=== PATIENT | male | born 1940 | race Hispanic/Latino ===

== ENCOUNTER → 2017-10-25 | Outpatient (CLI) | payer MEDICARE ==
[~2017-10-25] MED LIST: ASPIR 8181 MG PO; FISH OIL 1,2001 EACH PO; GLIMEPIRIDE4 MG PO; IOPAMIDOL 370 MG/ML 200 ML INFUS..BTL INJ ONE; METOPROLOL SUCC50 MG PO; NORCO 7.5-3251 EACH PO; SODIUM CHLORIDE 0.9% 250ML 500 ML ONE; SODIUM CHLORIDE 0.9% 50ML 50 ML ONE; STOOL SOFTENER100 M1 PO; TRIBENZOR 40-51 EAC1 PO; TYLENOL EXTRA500 MG PO; VYTORIN 10-201 EACH PO
[2017-10-25 12:05] LABS: CREATININE, SERUM 1.51 mg/dL (0.72-1.25)
--- NOTE | 2017-10-26 08:13 | Diagnostic Imaging Report ---
Exam: Soft tissue neck CT with IV contrast History: Dysphasia Comparison studies: None Technique: Axial, coronal and sagittal images from the skull base to the thoracic inlet. Coronal and sagittal images reconstructed from the axial data. Intravenous contrast: 100 cc of Omnipaque 300. Findings: Thyroid gland: Enlarged heterogeneous, nodular left thyroid lobe which contains calcification measures 6.1 x 4.5 x 3.7 cm (SI x AP x TV). Enlarged left thyroid lobe result in mild mass effect on the trachea and mass effect on the esophagus. No gross evidence of tracheal invasion. Evaluation of the adjacent esophagus is limited by artifact secondary anterior fusion hardware in the cervical spine. Right thyroid lobe is homogeneous, normal in size. Upper aerodigestive tract: Cannot adequately evaluate the oral cavity due to artifact from dental amalgam. No mass or abnormal enhancement in the remaining upper aerodigestive tract. Mild mass effect on the trachea and esophagus due to left thyroid mass as described above. Lymph nodes: Enhancing, nonnecrotic, noncalcified 1.6 cm left suprahyoid jugular chain level IIb lymph node. There are subcentimeter left level IV lymph nodes (series 3, image 47) which are nonspecific. No contralateral right cervical lymphadenopathy. Vessels: Patent cervical carotid and vertebral arteries. There is anatomical variant retropharyngeal course of the right internal carotid artery which indents the posterior wall of the oral pharynx. There are scattered calcified plaque in the aortic arch, great vessels and cervical carotid arteries and at the origins of the vertebral arteries. Atherosclerosis at the carotid bulbs result in at least mild stenosis on the left. Scattered calcified plaque in the carotid siphons. The intradural V4 segment of the right vertebral artery is not identified and may possibly terminate early as a PICA branch though cannot further evaluate. At least mild stenosis in the intradural V4 segment of the left vertebral artery due to atherosclerosis. Parotid and submandibular glands: Normal in size and symmetric. No masses. Orbits: No abnormalities. Paranasal sinuses: Clear. Temporal bones: No gross abnormalities. Skull base and facial bones: Intact. Cervical spine: Surgical changes of C5-C7 anterior cervical discectomy and fusion. Osteophyte complexes at C5-C6 and at C6-C7 indent the thecal sac and result in mild canal stenosis. Multilevel uncovertebral foraminal stenosis with mild foraminal stenosis on the left at C2-C3 at C3-C4 and bilaterally at C4-C5 and moderate foraminal stenosis bilaterally at C5-C6 and at C6-C7. Incidental findings: Median sternotomy wires and mediastinal clips presumably related to previous CABG. IMPRESSION: 1. Enlarged left thyroid lobe with mass or nodules which exert mass effect on the trachea and mass effect on the esophagus as described. Recommend thyroid ultrasound and possible FNA to exclude malignancy. 2. Left cervical lymphadenopathy with enlarged left level IIb lymph node. Diagnostic considerations include angle metastasis (? thyroid primary, occult malignancy in the upper aerodigestive tract, or other distant angle metastasis) or possibly lymphoma. Recommend FNA to further evaluate. 3. Additional asymmetrically prominent but subcentimeter in size left level IV lymph nodes are nonspecific. No contralateral right cervical lymphadenopathy. 4. Moderate scattered atherosclerosis. Signed by: Dr. Curtis Shah M.D. on 10/26/2017 8:09 AM
== END ==
LOC: CT 10:25
PROVIDERS: ATTEND Internal Medicine
DX: R13.11 Dysphagia, oral phase (principal)
CPT/HCPCS: 36415; 70491; 82565; 84520; J7050; Q9967

== ENCOUNTER → 2017-11-21 | Outpatient (CLI) | payer MEDICARE ==
[~2017-11-21] MED LIST changes: -IOPAMIDOL 370 MG/ML 200 ML INFUS..BTL INJ ONE; -SODIUM CHLORIDE 0.9% 250ML 500 ML ONE; -SODIUM CHLORIDE 0.9% 50ML 50 ML ONE
--- NOTE | 2017-11-21 15:13 | Diagnostic Imaging Report ---
PROCEDURE:HIPS BILAT 3-4VWS (+/- PELVIS) INDICATION: Hip pain COMPARISON:None. FINDINGS: No acute, displaced fracture or dislocation. Femoral heads project appropriately over the acetabula. Symmetric mild degenerative changes of the hip joints with superolateral acetabular osteophytosis. Atherosclerotic vascular calcifications with a surgical clip in the right inguinal region. Soft tissues are otherwise unremarkable. CONCLUSION: No acute osseous abnormalities. 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 Dictated by: Curtis Rosales M.D. on 11/21/2017 at 14:05 Electronically approved by: Curtis Rosales M.D. on 11/21/2017 at 14:05
== END ==
LOC: RAD 11:55
PROVIDERS: ATTEND Nurse Practitioner Acute Care
DX: M25.552 Pain in left hip (principal); M25.551 Pain in right hip
CPT/HCPCS: 73522

== ENCOUNTER 2018-02-07 21:48 | Emergency (ER) | payer MEDICARE ==
[~2018-02-07] VITALS: Ht 167.6 cm; Wt 95.7 kg
[~2018-02-07 21:48] MED LIST changes: +ACETAMINOPHEN325 M1 PO; +ATORVASTATIN CA20 MG PO; +CLOPIDOGREL75 MG PO; +FUROSEMIDE40 MG PO; +LEVAQUIN500 MG PO; +METFORMIN HCL500 MG PO; +VITAMIN D1000 UNI1 PO; +ZETIA10 MG PO
[2018-02-07 21:58] VITALS: BP 143/83
== END 2018-02-07 22:20 | disposition home or self-care (01) ==
LOC: ER 21:48
DX: M79.631 Pain in right forearm (principal); I80.8 Phlebitis and thrombophlebitis of other sites; I10 Essential (primary) hypertension; E11.9 Type 2 diabetes mellitus without complications; I25.10 Atherosclerotic heart disease of native coronary artery without angina pectoris; E78.5 Hyperlipidemia, unspecified; M10.9 Gout, unspecified; Z85.828 Personal history of other malignant neoplasm of skin; Z85.850 Personal history of malignant neoplasm of thyroid; Z95.1 Presence of aortocoronary bypass graft
CPT/HCPCS: 99283

== ENCOUNTER → 2018-05-18 | Day surgery (SDC) | payer MEDICARE ==
[2018-05-17 12:25] LABS: BASOPHILS % 0.4 % (0.0-1.0); EOSINOPHILS # (AUTO) 0.3 (0.0-0.4); EOSINOPHILS % 5.6 % (0.0-6.0); HEMATOCRIT 32.9 % (38.2-49.6); HEMOGLOBIN 10.5 g/dL (14.0-18.0); LYMPHOCYTES # (AUTO) 1.3 (1.0-3.2); LYMPHOCYTES % 25.6 % (18.0-39.1); MEAN CORPUSCULAR HEMOGLOBIN 27.8 pg (28-32); MEAN CORPUSCULAR HGB CONC 31.9 g/dL (31-35); MONOCYTES # (AUTO) 0.5 (0.2-0.8); MONOCYTES % 9.1 % (4.4-11.3); NEUTROPHILS # (AUTO) 2.9 (2.1-6.9); NEUTROPHILS % 58.9 % (38.7-80.0); PLATELET COUNT 201 x10e3/uL (140-360); RED BLOOD COUNT 3.78 x10e6/uL (4.3-5.7); RED CELL DISTRIBUTION WIDTH 13.5 % (11.7-14.4)
[2018-05-17 12:52] LABS: ALANINE AMINOTRANSFERASE 15 IU/L (0-55); ALBUMIN 3.9 g/dL (3.5-5.0); ALBUMIN/GLOBULIN RATIO 1.1 (0.8-2.0); ALKALINE PHOSPHATASE 38 IU/L (40-150); BLOOD UREA NITROGEN 26 mg/dL (7-26); BUN/CREATININE RATIO 27 (6-25); CALCIUM 9.4 mg/dL (8.4-10.2); CARBON DIOXIDE 22 mmol/L (22-29); CHLORIDE 105 mmol/L (98-107); CHOL/HDL RATIO 2.6 (3.9-4.7); CHOLESTEROL 103 MD/DL (0-199); CREATININE, SERUM 0.97 mg/dL (0.72-1.25); EST GLOMERULAR FILTRATION RATE > 60 ML/MIN (60-); GLUCOSE 110 mg/dL (74-118); HDL CHOLESTEROL 40 MG/DL (40-60); LDL CHOLESTEROL 48 MG/DL (60-130); SODIUM 138 mmol/L (136-145); TRIGLYCERIDES 75 MG/DL (0-149)
[2018-05-18] VITALS (7 sets, daily range): BP systolic 130–156; BP diastolic 56–100
[~2018-05-18] VITALS: Ht 172.7 cm; Wt 88.9 kg
[~2018-05-18] MED LIST changes: +ALPRAZOLAM 0.5 MG TAB ONE; +COLCRYS0.6 MG PO; +DIPHENHYDRAMINE HCL 25 MG CAP ONE; +EPTIFIBATIDE 10 ML ONE; +FAMOTIDINE 20 MG/2 ML VIAL IV ONE; +FENTANYL CITRATE/PF 100MCG/2 ML INJ ONE; +HEPARIN SOD/SOD CHLORIDE 2,000 ML ONE; +IOPAMIDOL 370 MG/ML 200 ML INFUS..BTL INJ ONE; +IRON PO; +LIDOCAINE HCL 2% LOCAL 20 ML VIAL ONE; +METHYLPREDNISOLONE SOD SUCC 125 MG/2ML VIAL ONE; +MIDAZOLAM HCL 2 MG/2 ML VIAL ONE; +SODIUM CHLORIDE 0.9% 1000ML 1,000 ML ONE; +SUDAFED PO; +SYNTHROID200 MCG PO; +TICAGRELOR 90 MG TABLET ONE; +VERAPAMIL HCL 2.5 MG/ML 2 ML VIAL ONE
--- NOTE | 2018-05-18 11:45 | NUR ---
AMBULATED TO BAY 8. PREPROCEDURE TEACHING PROVIDED. PREPPED PER PROCEDURE PROTOCOL. AAOX3, VSS. NEGATIVE SHRUTI'S TEST NOTED BILATERALLY. DP/PT PULSES PALPABLE. BED IN LOWEST POSITION, SIDE RAILS UP. CALL LIGHT WITHIN REACH. FAMILY AT BEDSIDE.
--- NOTE | 2018-05-18 15:15 | NUR ---
RETURNED TO BAY #10 POST CORONARY INTERVENTION, PERCLOSE TO RFA. AAOX3, VSS. SITE TO R GROIN C/D/I NO SS OF BLEEDING OR HEMATOMA NOTED. DP/PT PULSES PALPABLE BILATERALLY. IV PATENT. POST PROCEDURE INSTRUCTIONS PROVIDED TO PT AND FAMILY. DENIED PAIN OR NEEDS AT THIS TIME. BED IN LOWEST POSITION, SIDE RAILS UP, CALL LIGHT WITHIN REACH.
--- NOTE | 2018-05-18 15:30 | NUR ---
AAOX3, VSS. SITE TO R GROIN C/D/I NO S/S OF BLEEDING OR HEMATOMA NOTED. DP/PT PULSES PALPABLE BILATERALLY. DENIED PAIN OR NEEDS AT THIS TIME. BED IN LOWEST POSITION, SIDE RAILS UP, CALL LIGHT WITHIN REACH. FAMILY AT BEDSIDE.
--- NOTE | 2018-05-18 15:45 | NUR ---
SLEEPING WITH RESPIRATIONS EVEN AND NONLABORED. EASILY AWAKENED. AAOX3, VSS. SITE TO R GROIN C/D/I NO S/S OF BLEEDING OR HEMATOMA NOTED. DP/PT PULSES PALPABLE BILATERALLY. DENIED PAIN OR NEEDS AT THIS TIME. BED IN LOWEST POSITION, SIDE RAILS UP, CALL LIGHT WITHIN REACH. FAMILY AT BEDSIDE.
--- NOTE | 2018-05-18 16:30 | NUR ---
SLEEPING WITH RESPIRATIONS EVEN AND NONLABORED. EASILY AWAKENED. AAOX3, VSS. SITE TO R GROIN C/D/I NO S/S OF BLEEDING OR HEMATOMA NOTED. DP/PT PULSES PALPABLE BILATERALLY. WRITTEN AND VERBAL DISCHARGE INSTRUCTIONS PROVIDED TO PT AND FAMILY, VERIFIED BY VERBAL REPEAT. DENIED PAIN OR NEEDS AT THIS TIME. BED IN LOWEST POSITION, SIDE RAILS UP, CALL LIGHT WITHIN REACH. FAMILY AT BEDSIDE.
--- NOTE | 2018-05-18 17:00 | NUR ---
HOB INCREASED TO HIGH GALLARDO'S POSITION. AAOX3, VSS. SITE TO R GROIN C/D/I NO S/S OF BLEEDING OR HEMATOMA NOTED. DP/PT PULSES PALPABLE BILATERALLY. URINATED 300ML CLEAR, YELLOW URINE OUTPUT TO URINAL. TELE/OBS BED REQUEST ENTERED. DENIED PAIN OR NEEDS AT THIS TIME. BED IN LOWEST POSITION, SIDE RAILS UP, CALL LIGHT WITHIN REACH. FAMILY AT BEDSIDE.
--- NOTE | 2018-05-18 19:00 | NUR ---
Patient ambulated with assistance. Right groin site with no bleeding or hematoma noted. IV removed with cannula intact. [facility] for discharge home with daughter driving vehicle.
--- NOTE | 2018-05-19 12:57 | Operative Report ---
DATE OF PROCEDURE: May 18, 2018 INDICATIONS 1. Coronary artery disease. 2. Unstable angina. PROCEDURES PERFORMED 1. Left heart catheterization, selective coronary angiography. 2. Atherectomy and stent placement from the left main to the circumflex coronary artery. 3. Deployment of right groin Perclose closure device. RECOMMENDATIONS: Dual antiplatelet therapy for life. Access obtained in the right femoral artery. A 6-Mohawk sheath was placed. Angiography demonstrated 80% distal left main stenosis extending into the circumflex artery with SURY-3 flow, heavily calcified. A short lead ViperWire was advanced across the lesion for support. Orbital atherectomy using a CSI was performed. Balloon angioplasty with a 2.5-mm balloon, following which a single 3.5 x 16 mm [employer] Synergy stent was deployed from the ostial left main extending into the circumflex artery, post tied with a 4-mm balloon with excellent end result, less than 10% residual stenosis, SURY-3 flow. No complications. Right groin repaired using Perclose. Patient was discharged home same day. Job#: [id number] JULIUS
== END | disposition home or self-care (01) ==
LOC: CATH LAB 11:29
PROVIDERS: ATTEND Internal Medicine Interventional Cardiology
DX: I25.700 Atherosclerosis of coronary artery bypass graft(s), unspecified, with unstable angina pectoris (principal); Z95.1 Presence of aortocoronary bypass graft; I87.2 Venous insufficiency (chronic) (peripheral); C73 Malignant neoplasm of thyroid gland; I10 Essential (primary) hypertension; D64.9 Anemia, unspecified; J45.909 Unspecified asthma, uncomplicated; E11.9 Type 2 diabetes mellitus without complications; Z91.041 Radiographic dye allergy status; Z01.812 Encounter for preprocedural laboratory examination; Z79.82 Long term (current) use of aspirin; Z79.84 Long term (current) use of oral hypoglycemic drugs; Z79.02 Long term (current) use of antithrombotics/antiplatelets; Z68.33 Body mass index [BMI] 33.0-33.9, adult; Z82.49 Family history of ischemic heart disease and other diseases of the circulatory system
CPT/HCPCS: 93454; C9602; 36415; 80053; 80061; 85025; 92933; C1769; C1874; J1327; J2001; J2250; J2930; J7030; Q9967

== ENCOUNTER 2018-10-01 20:39 | Inpatient (IN) | payer MEDICARE ==
[~2018-10-01] VITALS: Ht 172.7 cm; Wt 87.1 kg
[~2018-10-01 20:39] MED LIST changes: -ALPRAZOLAM 0.5 MG TAB ONE; -DIPHENHYDRAMINE HCL 25 MG CAP ONE; -EPTIFIBATIDE 10 ML ONE; -FAMOTIDINE 20 MG/2 ML VIAL IV ONE; -FENTANYL CITRATE/PF 100MCG/2 ML INJ ONE; -HEPARIN SOD/SOD CHLORIDE 2,000 ML ONE; -IOPAMIDOL 370 MG/ML 200 ML INFUS..BTL INJ ONE; -LIDOCAINE HCL 2% LOCAL 20 ML VIAL ONE; -METHYLPREDNISOLONE SOD SUCC 125 MG/2ML VIAL ONE; -MIDAZOLAM HCL 2 MG/2 ML VIAL ONE; -SODIUM CHLORIDE 0.9% 1000ML 1,000 ML ONE; -TICAGRELOR 90 MG TABLET ONE; -VERAPAMIL HCL 2.5 MG/ML 2 ML VIAL ONE
[2018-10-01] MEDS ORDERED: PANTOPRAZOLE 40 MG 10ML VIAL IV ONE (21:30)
[2018-10-01 22:03] LABS: BASOPHILS % 0.3 % (0.0-1.0); EOSINOPHILS # (AUTO) 0.2 (0.0-0.4); EOSINOPHILS % 1.7 % (0.0-6.0); HEMATOCRIT 25.8 % (38.2-49.6); HEMOGLOBIN 8.4 g/dL (14.0-18.0); LYMPHOCYTES # (AUTO) 1.3 (1.0-3.2); LYMPHOCYTES % 12.2 % (18.0-39.1); MEAN CORPUSCULAR HEMOGLOBIN 29.6 pg (28-32); MEAN CORPUSCULAR HGB CONC 32.6 g/dL (31-35); MEAN CORPUSCULAR VOLUME 90.8 fL (81-99); MONOCYTES # (AUTO) 0.6 (0.2-0.8); MONOCYTES % 5.7 % (4.4-11.3); NEUTROPHILS # (AUTO) 8.5 (2.1-6.9); NEUTROPHILS % 79.1 % (38.7-80.0); PLATELET COUNT 256 x10e3/uL (140-360); RED BLOOD COUNT 2.84 x10e6/uL (4.3-5.7); RED CELL DISTRIBUTION WIDTH 15.9 % (11.7-14.4)
[2018-10-01 22:33] LABS: CREATINE KINASE MB 1.6 ng/mL (0-5.0)
[2018-10-01] MEDS ORDERED: PANTOPRAZOL 40MG/SOD CHL 0.9% 50 ML IV ONE (23:14)
[2018-10-01] MEDS: PANTOPRAZOLE INJ 80 MG in SODIUM CHLORIDE 0.9% 100 ML IV SCH (23:15)
[2018-10-01] MEDS ORDERED: VYTORIN 10-401 EACH PO (23:24)
[2018-10-01] MEDS ORDERED: TAFINLAR PO (23:24)
[2018-10-01] MEDS ORDERED: MEN'S ONE DAIL1 EACH PO (23:24)
[2018-10-01] MEDS ORDERED: VITAMIN D35000 UNIT PO (23:24)
[2018-10-01] MEDS ORDERED: CITALOPRAM HBR20 MG PO (23:24)
--- NOTE | 2018-10-01 23:28 | NUR ---
urinal at bedside, pt states he does not feel like he needs to void at present
--- NOTE | 2018-10-02 02:25 | NUR ---
URINE COLLECTED AND SENT. PT UP TO RESTROOM, HAD APPROX 1/4 CUP DARK TARRY STOOL IN TOILET COLLECTION DEVICE. AWAKE ALERT SKIN W/D RESP NONLAB. NAD NOTED. DENIES ANY CHANGE IN SX AT THIS TIME. PLACED ON AIR MATTRESS FOR COMFORT.
[2018-10-02 02:45] LABS: BILIRUBIN,URINE NEGATIVE (NEGATIVE); CLARITY,URINE CLEAR (CLEAR); COLOR,URINE YELLOW (YELLOW); KETONES,URINE NEGATIVE (NEGATIVE); LEUKOCYTE ESTERASE ,URINE NEGATIVE (NEGATIVE); NITRITE,URINE NEGATIVE (NEGATIVE); PROTEIN,URINE DIPSTICK NEGATIVE (NEGATIVE); URINE UROBILINOGEN 0.2 mg/dL (0.2 - 1)
[2018-10-02 02:57] LABS: BACTERIA,URINE FEW /HPF; EPITHELIAL CELLS,URINE FEW /LPF; MUCUS,URINE FEW (RARE); RBC,URINE 0-5 /HPF (0-5)
[2018-10-02] MEDS ORDERED: PREDNISONE 10 MG TAB ONE (03:25)
[2018-10-02] MEDS ORDERED: PREDNISONE 20 MG TAB PO ONE ×2 (03:30→13:30)
[2018-10-02] MEDS ORDERED: PANTOPRAZOL 40MG/SOD CHL 0.9% 50 ML IV ONE (03:31)
--- NOTE | 2018-10-02 04:00 | NUR ---
PT RESTING WITH EYES CLOSED, EASILY AROUSED, DENIES ANY CHANGES, SKIN W/D RESP NONLAB. NAD NOTED. BLOOD DRAWN FOR CMP AND REPEAT H&H.
[2018-10-02 04:21] LABS: HEMATOCRIT 19.9 % (38.2-49.6); HEMOGLOBIN 6.4 g/dL (14.0-18.0)
[2018-10-02] MEDS ORDERED: SODIUM CHLORIDE 0.9% 250ML 250 ML IV ONE (04:30)
[2018-10-02 04:33] LABS: ALANINE AMINOTRANSFERASE 10 IU/L (0-55); ALBUMIN 2.8 g/dL (3.5-5.0); ALBUMIN/GLOBULIN RATIO 1.3 (0.8-2.0); ALKALINE PHOSPHATASE 37 IU/L (40-150); ANION GAP 11.7 mmol/L (8-16); BLOOD UREA NITROGEN 42 mg/dL (7-26); BUN/CREATININE RATIO 38 (6-25); CARBON DIOXIDE 18 mmol/L (22-29); CHLORIDE 112 mmol/L (98-107); EST GLOMERULAR FILTRATION RATE > 60 ML/MIN (60-); GLUCOSE 100 mg/dL (74-118); POTASSIUM 4.7 mmol/L (3.5-5.1); SODIUM 137 mmol/L (136-145)
--- NOTE | 2018-10-02 05:01 | NUR ---
1ST UNIT OF PRBC'S STARTED. PT AWAKE ALERT SKIN W/D RESP NONLAB. NAD NOTED.
--- NOTE | 2018-10-02 06:16 | Diagnostic Imaging Report ---
Examination: Single AP view of the chest. COMPARISON: Portable chest 02/02/2018 INDICATION: CHF, lower GI bleed IMPRESSION: 1. Lines and Tubes: None 2. Lungs are well-inflated. No consolidation or pleural effusion. 3. Stable enlargement of the cardiac silhouette. Central pulmonary vasculature is normal. CABG changes. Aortic ectasia, stable 4. No acute bony abnormalities. Signed by: Dr. Grant Christianson M.D. on 10/02/2018 6:13 AM
--- NOTE | 2018-10-02 06:54 | NUR ---
REPORT TO RAFAEL HERNANDEZ
[2018-10-02] MEDS ORDERED: SODIUM CHLORIDE 0.9% 250ML 250 ML ONE ×2 (08:03→21:09)
[2018-10-02] MEDS ORDERED: PANTOPRAZOLE 40 MG 10ML VIAL ONE (08:14)
[2018-10-02] MEDS: PANTOPRAZOLE INJ 80 MG in SODIUM CHLORIDE 0.9% 100 ML IV SCH (08:15)
[2018-10-02] MEDS ORDERED: PANTOPRAZOLE 40 MG 10ML VIAL IV SCH (09:00)
[2018-10-02 11:30] VITALS: BP 141/65
--- NOTE | 2018-10-02 11:30 | NUR ---
PATIENT RECEIVED FROM ER PER STRETCHER. ALERT AND ORIENTED X 3, SKIN WARM AND DRY TO TOUCH, RESPIRATION EVEN AND UNLABORED. DENIED PAIN AT THIS TIME. ABLE TO TRANSFER SELF FROM STRETCHER TO BED. BLOOD TRANSFUSION IN PROGRESS, NO ADVERSE REACTION NOTED. TELEMETRY BOX [address], YELLOW SOCKS APPLIED. PATIENT ORIENTED TO SURROUNDINGS, BED IN LOWER POSITION, CALL LIGHT AT REACH. INSTRUCTED TO CALL FOR ASSISTANCE NEEDED. FAMILY AT BED SIDE. WILL CLOSELY MONITOR.
--- NOTE | 2018-10-02 11:35 | NUR ---
Patient transported to room 294 on tele. Blood transfusing at 100 ml's per hour. Med surg nurse aware.
[2018-10-02 12:02] VITALS: BP 142/65
--- NOTE | 2018-10-02 12:15 | NUR ---
BLOOD TRANSFUSION COMPLETED, NO ADVERSE REACTION OBSERVED. IV PROTONIX IN PROGRESS. CALL LIGHT AT REACH.
[2018-10-02] MEDS ORDERED: DIPHENHYDRAMINE HCL 25 MG CAP PO ONE (14:30)
[2018-10-02] MEDS ORDERED: FAMOTIDINE 20 MG TAB PO ONE (14:30)
[2018-10-02 15:41] LABS: HEMOGLOBIN 8.2 g/dL (14.0-18.0)
[2018-10-02 16:00] VITALS: BP 159/72
--- NOTE | 2018-10-02 16:00 | NUR ---
PATIENT OFF UNIT TO RADIOLOGY.
--- NOTE | 2018-10-02 16:00 | NUR ---
Visit made by the Spiritual Care Department Pastoral Visitor, Layla Polanco. PV provided pastoral presence, prayer, hospitality, and supportive listening. Pastoral Visitor informed pt/family of the scope of [facility] and availability. [employer] Spiritual Care Department O: [phone] Pager: [phone] ([phone] calling from)
[2018-10-02 16:21] LABS: FERRITIN 182.88 ng/mL (21.81-274.66)
--- NOTE | 2018-10-02 16:38 | NUR ---
PATIENT BACK TO UNIT FROM RADIOLOGY.
--- NOTE | 2018-10-02 17:10 | Diagnostic Imaging Report ---
EXAMINATION: CT of the abdomen and pelvis with contrast. TECHNIQUE: Spiral CT images of the abdomen and pelvis were performed from the lung bases to the lesser trochanters after the intravenous administration of 100 cc Isovue 370. Coronal and sagittal reformatted images were obtained. COMPARISON: None. CLINICAL HISTORY:Rectal bleeding DISCUSSION: ABDOMEN/PELVIS: LOWER THORAX:Subsegmental atelectasis in the left lung base HEPATOBILIARY: No focal hepatic lesions. No intra-or extrahepatic biliary ductal dilation. The gallbladder is normal. SPLEEN: No splenomegaly. PANCREAS: No focal masses or ductal dilatation. ADRENALS: No adrenal nodules. KIDNEYS/URETERS: No hydronephrosis, stones, or solid mass lesions. PELVIC ORGANS/BLADDER: Urinary bladder is incompletely distended but otherwise unremarkable. Coarse prostatic calcifications. PERITONEUM/RETROPERITONEUM: No free air or fluid. LYMPH NODES: No pelvic sidewall, retroperitoneal, or mesenteric lymphadenopathy. VESSELS: Atherosclerotic calcification of the abdominal aorta and major branch vessels without aneurysmal dilatation. The iliac arterial systems are markedly tortuous. GI TRACT: Multiple sigmoid diverticula with a short segment focus of wall thickening and adjacent mesocolic inflammatory change involving the mid sigmoid (series 2 image 64). Diverticula at lesser concentration are noted proximally within the large bowel. The appendix is normal. The stomach is collapsed with prominent rugal folds. No small bowel dilatation to suggest obstruction. BONES AND SOFT TISSUE: No osseous destructive lesion or focal soft tissue abnormalities. Bilateral L5 pars interarticularis defects with grade 1 anterolisthesis of L5 over S1. Multilevel degenerative disc changes and facet arthropathy elsewhere within the lumbar spine. IMPRESSION: Short segment sigmoid diverticulitis without tiffany perforation or drainable fluid collection. Atherosclerotic vascular disease. Signed by: Dr. Curtis Rosales M.D. on 10/02/2018 5:06 PM
[2018-10-02] MEDS ORDERED: IOPAMIDOL 370 MG/ML 200 ML INFUS..BTL INJ ONE (18:02)
[2018-10-02] MEDS ORDERED: SODIUM CHLORIDE 0.9% 50ML 50 ML ONE (18:02)
[2018-10-02] MEDS ORDERED: HYDRALAZINE HCL 20 MG/ML VIAL IV PRN (20:00)
[2018-10-02] MEDS ORDERED: PEG (High)/E-LYTE SOLN 4,000 ML BTL PO NR (20:00)
[2018-10-02 20:20] LABS: HEMATOCRIT 25.7 % (38.2-49.6); HEMOGLOBIN 8.6 g/dL (14.0-18.0)
[2018-10-02 20:38] VITALS: BP 153/71
[2018-10-02] MEDS: LEVOFLOXACIN 500MG/D5W 100ML 100 ML IV SCH (21:22)
[2018-10-02] MEDS: PANTOPRAZOL 40MG/SOD CHL 0.9% 50 ML IV SCH (22:30)
[2018-10-02] MEDS: METRONIDAZOLE 500MG/NS 100ML 100 ML IV SCH (22:30)
[2018-10-02 23:55] VITALS: BP 146/67
[2018-10-03 01:43] LABS: HEMOGLOBIN 7.9 g/dL (14.0-18.0)
--- NOTE | 2018-10-03 02:51 | History and Physical ---
CHIEF COMPLAINT: The patient is admitted for lower GI bleed. HISTORY OF PRESENTING ILLNESS: Mr. Gino Yu with a history of colitis with a history of multiple colon polyps done 3 years ago, was in usual state of health until the patient on Monday morning started to have some rectal bleeding, kept away from the family. The patient was noted to be very tired and fatigued and daughter on examination or interrogation found that the patient had bleeding and was brought to the emergency room and was found to have diverticulitis, admitted for the same. PAST MEDICAL HISTORY: 1. History of thyroid cancer with recent thyroidectomy. The patient has papillary thyroid cancer, follicular variant. 2. History of CAD. 3. History of hypertension. 4. History of diabetes mellitus. 5. History of hyperlipidemia. 6. History of depression. MEDICATIONS: He takes at home are Tribenzor 40/5/25 mg, metformin 1000 mg twice a day, metoprolol 50 mg daily, Vytorin 10/40 mg tablets a day, Plavix 75 mg, citalopram 20 mg, furosemide 40 mg, and the patient also is on Tafinlar 50 mg for the follicular variant cancer. The patient is also with current medications including aspirin 81 mg, iron tablet 65 mg, Veronica-Colace, docusate, vitamin D3 of 5000 units. PAST SURGICAL HISTORY: Includes history of multiple colonoscopies done by Dr. Gaitan. The patient also had a cystourethroscopy. The patient had quadruple bypass at [facility] in 2010; heart catheterization multiple times, recently by Dr. Smith; total knee replacement by Dr. Guillen; and C4-C5 disk fusion, ACDF; and again stress test by Dr. Smith. The patient had thyroidectomy on 02/14/2018 and laryngoplasty in 2018, [place] gain stent was put by Dr. Smith in 2018. SOCIAL HISTORY: No EtOH. No IV drug abuse. FAMILY HISTORY: Positive for diabetes and heart disease. REVIEW OF SYSTEMS: Negative for chest pain. Positive for some shortness of breath. Positive for rectal bleeding. No abdominal pain. No chest pain. No diplopia. No blurry vision. Positive for fatigue. PHYSICAL EXAMINATION: VITAL SIGNS: Temperature is 98.4, pulse is 71, blood pressure is 159/72, pulse oximetry of 99%. HEENT: Normocephalic, atraumatic. Pupils are reactive to light and accommodation. The patient does have pallor. CVS: S1 and S2. Regular rate and rhythm. ABDOMEN: Tenderness in the left lower quadrant. No rebound or guarding. EXTREMITIES: No clubbing, no cyanosis, no edema. LABORATORY VALUES: Initial hemoglobin was 8.4, hematocrit of 25.8, the patient dropped to 6.4 and 19.9, and back to 8.2 and 24.0. Chemistry shows BUN of 42, creatinine of 1.10. The patient's TIBC was 214, iron was 78. Troponins was negative. Lipase of 101. CT scan shows short segment sigmoid diverticulitis without tiffany perforation or drainable fluid collection, atherosclerotic vascular disease. ASSESSMENT: Diverticulitis. PLAN: Plan is to continue on antibiotics. The patient is currently on pantoprazole. We will put the patient on Flagyl and Levaquin, although pantoprazole has been started. The patient will be kept n.p.o. at this time. We will restart IV medications for his blood pressure. The patient is on IV fluids at this time. We will hold off on the Plavix and also hold off on the aspirin at this time in lieu of rectal bleeding. The patient's stenting was back in April. The patient has had about 5 to 6 months of Plavix. We will hold off. Further recommendation per clinical course. A consult with Dr. Cory Esquivel will be done too. H and H will be followed up serially. At this time, the rectal bleeding has stopped. MD JORDAN EstrellaJ/MODL /[id number]
[2018-10-03 04:42] VITALS: BP 120/57
[2018-10-03] MEDS: PANTOPRAZOL 40MG/SOD CHL 0.9% 50 ML IV SCH ×5 (05:21→22:36)
[2018-10-03] MEDS: METRONIDAZOLE 500MG/NS 100ML 100 ML IV SCH ×3 (05:39→22:36)
[2018-10-03 06:58] LABS: BASOPHILS % 0.1 % (0.0-1.0); EOSINOPHILS % 0.4 % (0.0-6.0); HEMATOCRIT 22.4 % (38.2-49.6); HEMOGLOBIN 7.5 g/dL (14.0-18.0); LYMPHOCYTES % 13.9 % (18.0-39.1); MEAN CORPUSCULAR HEMOGLOBIN 29.8 pg (28-32); MEAN CORPUSCULAR HGB CONC 33.5 g/dL (31-35); MEAN CORPUSCULAR VOLUME 88.9 fL (81-99); MONOCYTES # (AUTO) 0.5 (0.2-0.8); MONOCYTES % 7.6 % (4.4-11.3); NEUTROPHILS # (AUTO) 5.5 (2.1-6.9); PLATELET COUNT 189 x10e3/uL (140-360); RED BLOOD COUNT 2.52 x10e6/uL (4.3-5.7)
[2018-10-03] MEDS ORDERED: ACETAMINOPHEN 325 MG TAB PO PRN (07:00)
[2018-10-03] MEDS ORDERED: FUROSEMIDE 40 MG TAB PO PRN (07:00)
[2018-10-03 07:23] LABS: ALANINE AMINOTRANSFERASE 7 IU/L (0-55); ALBUMIN 2.9 g/dL (3.5-5.0); ALBUMIN/GLOBULIN RATIO 1.4 (0.8-2.0); ALKALINE PHOSPHATASE 35 IU/L (40-150); BLOOD UREA NITROGEN 24 mg/dL (7-26); BUN/CREATININE RATIO 28 (6-25); CALCIUM 7.8 mg/dL (8.4-10.2); CARBON DIOXIDE 20 mmol/L (22-29); CHLORIDE 115 mmol/L (98-107); CREATININE, SERUM 0.87 mg/dL (0.72-1.25); EST GLOMERULAR FILTRATION RATE > 60 ML/MIN (60-); GLUCOSE 105 mg/dL (74-118); SODIUM 142 mmol/L (136-145)
[2018-10-03 08:00] VITALS: BP 123/57
[2018-10-03] MEDS: TAFINLAR PO SCH ×3 (08:00→16:58)
--- NOTE | 2018-10-03 08:00 | NUR ---
Pt was received in bed. AOX4 and able to verbalize needs. Pt denies any pain at this time. Pt had bowel movement this morning and no blood noted to stool. Breaths are even and unlabored.
[2018-10-03 08:04] VITALS: BP 123/57
[2018-10-03] MEDS: ALLOPURINOL 300 MG TAB PO SCH (08:53)
[2018-10-03] MEDS: METOPROLOL SUCCINATE 50 MG TAB XL PO SCH (08:53)
[2018-10-03] MEDS: CITALOPRAM HYDROBROMIDE 20 MG TAB PO SCH (08:55)
[2018-10-03] MEDS: FERROUS SULFATE 325 MG TAB PO SCH (09:01)
[2018-10-03] MEDS ORDERED: SODIUM CHLORIDE 0.9% 250ML 250 ML ONE ×2 (09:53→13:58)
[2018-10-03] MEDS: TRIBENZOR PO SCH (10:00)
--- NOTE | 2018-10-03 10:37 | Progress Note ---
DATE: SUBJECTIVE: The patient is here for acute GI bleed. The patient has been given FFPs and 1 unit of PRBC. Currently, the hemoglobin and hematocrit are 7.9 and 24.0. The patient does continue to bleed. Post transfusion, H and H q.6 has been ordered. Currently, the patient is asymptomatic, little tired. OBJECTIVE: VITAL SIGNS: Temperature is 97.9, pulse of 83, respirations of 16, and blood pressure is 120/57. HEENT: Normocephalic, atraumatic. Pallor is present. CVS: S1, S2 normal. Regular rate and rhythm. ABDOMEN: Nontender. Tenderness is decreased in left lower quadrant. EXTREMITIES: No clubbing, no cyanosis. Trace edema. LABORATORY DATA: Hemoglobin 7.9, hematocrit of 24.0. Chemistries, glucoses have been normal. Iron is 78, TIBC of 214. ASSESSMENT: 1. Diverticular bleed. 2. Diverticulitis. 3. Hypertension. 4. Coronary artery disease. 5. Gout. 6. Hyperlipidemia. 7. History of thyroid cancer. PLAN: Plan is to continue jumbo FFP. Start the patient on clear liquid diet and also restart his home medication. Further recommendation and clinical course, we will continue to monitor the patient with Dr. Esquivel. Colonoscopy is not recommended at this time secondary to diverticulitis. MD JORDAN EstrellaJ/MODL /[id number]
--- NOTE | 2018-10-03 10:40 | NUR ---
Spoke to Dr. Taylor Esquivel to report hgb/hct results and received orders to transfuse one PRBC.
[2018-10-03] MEDS ORDERED: SODIUM CHLORIDE 0.9% 250ML 250 ML IV NR (10:45)
[2018-10-03 12:16] VITALS: BP 128/60
[2018-10-03 13:14] LABS: HEMATOCRIT 25.6 % (38.2-49.6); HEMOGLOBIN 7.6 g/dL (14.0-18.0)
[2018-10-03 16:00] VITALS: BP 147/68
--- NOTE | 2018-10-03 17:48 | NUR ---
Pt had transfusion of platelets and 1 unit PRBC and tolerated both well. no adverse reactions noted from transfusions. Pt denies any pain at this time. Continues on protonix drip.
[2018-10-03 19:29] LABS: HEMATOCRIT 23.1 % (38.2-49.6); HEMOGLOBIN 7.7 g/dL (14.0-18.0)
[2018-10-03 20:00] VITALS: BP 131/67
[2018-10-03] MEDS: EZETIMIBE 10 MG TAB PO SCH (21:00)
[2018-10-03] MEDS: LEVOFLOXACIN 500MG/D5W 100ML 100 ML IV SCH (21:23)
[2018-10-03] MEDS: SIMVASTATIN 40 MG TAB PO SCH (21:24)
[2018-10-04] VITALS (9 sets, daily range): BP systolic 109–135; BP diastolic 54–67
[2018-10-04] MEDS: PANTOPRAZOL 40MG/SOD CHL 0.9% 50 ML IV SCH ×4 (03:21→17:16)
[2018-10-04] MEDS: METRONIDAZOLE 500MG/NS 100ML 100 ML IV SCH ×3 (05:36→22:08)
[2018-10-04 06:37] LABS: BASOPHILS % 0.2 % (0.0-1.0); EOSINOPHILS # (AUTO) 0.1 (0.0-0.4); EOSINOPHILS % 2.7 % (0.0-6.0); HEMATOCRIT 24.1 % (38.2-49.6); HEMOGLOBIN 8.1 g/dL (14.0-18.0); LYMPHOCYTES # (AUTO) 0.8 (1.0-3.2); LYMPHOCYTES % 16.3 % (18.0-39.1); MEAN CORPUSCULAR HEMOGLOBIN 29.5 pg (28-32); MEAN CORPUSCULAR HGB CONC 33.6 g/dL (31-35); MEAN CORPUSCULAR VOLUME 87.6 fL (81-99); MONOCYTES # (AUTO) 0.3 (0.2-0.8); MONOCYTES % 6.1 % (4.4-11.3); NEUTROPHILS # (AUTO) 3.7 (2.1-6.9); NEUTROPHILS % 72.5 % (38.7-80.0); PLATELET COUNT 181 x10e3/uL (140-360); RED BLOOD COUNT 2.75 x10e6/uL (4.3-5.7); RED CELL DISTRIBUTION WIDTH 17.2 % (11.7-14.4)
[2018-10-04 07:00] LABS: BLOOD UREA NITROGEN 15 mg/dL (7-26); BUN/CREATININE RATIO 17 (6-25); CALCIUM 8.8 mg/dL (8.4-10.2); CARBON DIOXIDE 23 mmol/L (22-29); CHLORIDE 113 mmol/L (98-107); CREATININE, SERUM 0.88 mg/dL (0.72-1.25); EST GLOMERULAR FILTRATION RATE > 60 ML/MIN (60-); GLUCOSE 110 mg/dL (74-118); SODIUM 143 mmol/L (136-145)
[2018-10-04] MEDS ORDERED: IRON SUCROSE 100 MG in SODIUM CHLORIDE 0.9% 100 ML 100 ML IV SCH (07:30)
--- NOTE | 2018-10-04 07:30 | NUR ---
Pt in bed with eyes open. Pt is aox4, Denies any pain at this time. Continues on protonix drip with no adverse reactions noted.
--- NOTE | 2018-10-04 08:13 | Progress Note ---
DATE: SUBJECTIVE: The patient is here for diverticulitis and diverticular bleed. Yesterday, the patient did not have any rectal bleeding. OBJECTIVE: VITAL SIGNS: Temperature is 97.3, T-max is 99.4 on 10/04/2018 at 00:50. The patient's blood pressure is 134/61, pulse oximetry of 95% on room air. HEENT: Normocephalic, atraumatic. Pupils are reactive to light and accommodation. CVS: S1, S2. Regular rate and rhythm. ABDOMEN: Tenderness present the left lower quadrant. No guarding. EXTREMITIES: No clubbing, no cyanosis, no edema. LABORATORY DATA: Today's hemoglobin is 8.1, hematocrit of 24.1. Chemistries are pending. ASSESSMENT: Acute diverticular bleed, diverticulitis, hypertension, coronary artery disease, history of thyroid cancer, history of hyperlipidemia, history of gout. PLAN: Plan is to continue monitor the patient's H and H. Do not recommend colonoscopy at this time. The patient is progressing very well. Has iron deficiency component. We will add Venofer to the regimen. Start the patient on regular diet. Possible discharge tomorrow. Further recommendation per clinical course. Continue on his diabetic and CV medications. MD HANNAH Estrella/RAPHAEL /[id number]
[2018-10-04] MEDS: TAFINLAR PO SCH ×2 (08:53→17:13)
[2018-10-04] MEDS: TRIBENZOR PO SCH (08:53)
[2018-10-04] MEDS: CITALOPRAM HYDROBROMIDE 20 MG TAB PO SCH (08:53)
[2018-10-04] MEDS: FERROUS SULFATE 325 MG TAB PO SCH (08:53)
[2018-10-04] MEDS: ALLOPURINOL 300 MG TAB PO SCH (08:54)
[2018-10-04] MEDS: METOPROLOL SUCCINATE 50 MG TAB XL PO SCH (08:54)
[2018-10-04 09:31] LABS: EOSINOPHILS % (MANUAL) 3 % (0-7); LYMPHOCYTES % (MANUAL) 20 % (19-48); MONOCYTES % (MANUAL) 3 % (3.4-9.0); MYELOCYTES % (MANUAL) 1 % (0-0); NEUTROPHILS % (MANUAL) 73 % (40-74)
[2018-10-04 09:32] LABS: ANISOCYTOSIS SLIGHT; HYPOCHROMASIA MODERATE; PLATELET ESTIMATE ADEQUATE; PLATELET MORPHOLOGY COMMENT NORMAL; RBC MORPHOLOGY COMMENT NORMAL
[2018-10-04 12:03] LABS: HEMATOCRIT 26.9 % (38.2-49.6)
[2018-10-04 18:48] LABS: HEMATOCRIT 25.5 % (38.2-49.6); HEMOGLOBIN 8.1 g/dL (14.0-18.0)
[2018-10-04] MEDS: LEVOFLOXACIN 500MG/D5W 100ML 100 ML IV SCH (21:00)
[2018-10-04] MEDS: EZETIMIBE 10 MG TAB PO SCH (21:00)
[2018-10-04] MEDS: SIMVASTATIN 40 MG TAB PO SCH (21:00)
[2018-10-05] VITALS (8 sets, daily range): BP systolic 111–153; BP diastolic 56–71
[2018-10-05] MEDS: PANTOPRAZOL 40MG/SOD CHL 0.9% 50 ML IV SCH ×4 (00:09→15:05)
[2018-10-05] MEDS: METRONIDAZOLE 500MG/NS 100ML 100 ML IV SCH ×2 (05:46→14:53)
--- NOTE | 2018-10-05 07:35 | NUR ---
PATIENT IN BED RESTING WITH NO S/S OF DISTRESS. DENIED PAIN AT THIS TIME. BED IN LOWER POSITION, CALL LIGHT AT REACH.
[2018-10-05] MEDS: CITALOPRAM HYDROBROMIDE 20 MG TAB PO SCH (09:00)
[2018-10-05] MEDS: TAFINLAR PO SCH ×2 (09:00→17:00)
[2018-10-05] MEDS: TRIBENZOR PO SCH (09:00)
[2018-10-05] MEDS: FERROUS SULFATE 325 MG TAB PO SCH (09:19)
[2018-10-05] MEDS: METOPROLOL SUCCINATE 50 MG TAB XL PO SCH (09:20)
[2018-10-05] MEDS: ALLOPURINOL 300 MG TAB PO SCH (09:22)
--- NOTE | 2018-10-05 11:29 | NUR ---
PATIENT ASSISTED TO THE RESTROOM AND BACK TO BED, NO COMPLAIN VOICED. BED IN LOWER POSITION, CALL LIGHT AT REACH.
[2018-10-05] MEDS: DOCUSATE SODIUM 100 MG CAP PO SCH ×2 (12:14→17:21)
--- NOTE | 2018-10-05 15:47 | NUR ---
PATIENT AMBULATING IN HALLWAY, NO DISTRESS NOTED. WILL CLOSELY MONITOR.
[2018-10-05 18:32] LABS: BASOPHILS % 0.2 % (0.0-1.0); EOSINOPHILS # (AUTO) 0.3 (0.0-0.4); EOSINOPHILS % 3.9 % (0.0-6.0); HEMATOCRIT 25.3 % (38.2-49.6); HEMOGLOBIN 8.2 g/dL (14.0-18.0); LYMPHOCYTES # (AUTO) 0.7 (1.0-3.2); LYMPHOCYTES % 11.5 % (18.0-39.1); MEAN CORPUSCULAR HEMOGLOBIN 29.3 pg (28-32); MEAN CORPUSCULAR HGB CONC 32.4 g/dL (31-35); MEAN CORPUSCULAR VOLUME 90.4 fL (81-99); MONOCYTES # (AUTO) 0.5 (0.2-0.8); MONOCYTES % 7.1 % (4.4-11.3); NEUTROPHILS # (AUTO) 4.8 (2.1-6.9); NEUTROPHILS % 75.9 % (38.7-80.0); PLATELET COUNT 199 x10e3/uL (140-360); RED CELL DISTRIBUTION WIDTH 16.7 % (11.7-14.4)
--- NOTE | 2018-10-05 19:08 | NUR ---
As per dr order, repeat cbc and if hb result greater than 7.5 discharge home.
[2018-10-05] MEDS ORDERED: CIPRO500 MG PO (19:55)
[2018-10-05] MEDS ORDERED: FLAGYL250 MG PO (19:56)
--- NOTE | 2018-10-05 20:29 | NUR ---
x2 iv to R hand/ wrist removed, cath intact. patient departed via wheelchair to private auto. belongings with patient/family. tele box returned to tele. prescriptions given to patient, copy in chart.
--- NOTE | 2018-10-05 20:41 | Progress Note ---
DATE: SUBJECTIVE: The patient is here for diverticulitis and rectal bleeding. The patient has been followed with serial H and Hs. Last hemoglobin was 8.1. No rectal bleeding. The patient had bowel movement today. OBJECTIVE: VITAL SIGNS: Temperature is 99.0, pulse of 73, respirations 18, blood pressure is 122/60, and pulse oximetry 100%. HEENT: Normocephalic, atraumatic. Pupils are reactive to light and accommodation. CVS: S1 and S2 normal. Regular rate and rhythm. ABDOMEN: Nontender and nondistended. EXTREMITIES: No clubbing, no cyanosis, no edema. ASSESSMENT: 1. Acute diverticular bleed. 2. Diverticulitis. 3. Hypertension. 4. Coronary artery disease. 5. History of thyroid cancer. 6. History of hyperlipidemia. 7. History of gout. PLAN: Continue to monitor the patient's H and H, can be discharged today with H and H holding 8.1. The patient also has iron deficiency anemia. The patient was given on iron sucrose. The patient can advance the diet as tolerated, bland diet is recommended. The patient can be discharged home if the H and H is above 8. Further recommendation per clinical course. Continue medications and follow up with Dr. Jones, his primary care physician in 1 to 2 weeks. MD JORDAN EstrellaJ/MODL /[id number]
== END 2018-10-05 20:29 | disposition home or self-care (01) | DRG 379 ==
LOC: ER 20:39 → ERHOLD 23:05 → MED/SURG3 10-02 11:23
PROVIDERS: ADMIT Family Medicine; ATTEND Family Medicine
DX: K57.33 Diverticulitis of large intestine without perforation or abscess with bleeding (principal); I10 Essential (primary) hypertension; I25.10 Atherosclerotic heart disease of native coronary artery without angina pectoris; E11.9 Type 2 diabetes mellitus without complications; M10.9 Gout, unspecified
CPT/HCPCS: 36415; 71045; 74177; 80048; 80053; 81001; 82270; 82550; 82553; 82728; 82948; 83540; 83690; 83880; 84466; 84484; 85014; 85018; 85025; 85045; 85730; 86850; 86900; 86920; 99284; J1756; J1956; J7050; J7512; P9016; P9034; Q9967

== ENCOUNTER → 2019-02-14 | Day surgery (SDC) | payer MEDICARE ==
[2019-02-11 17:21] LABS: BASOPHILS % 0.5 % (0.0-1.0); EOSINOPHILS # (AUTO) 0.1 (0.0-0.4); EOSINOPHILS % 2.9 % (0.0-6.0); HEMATOCRIT 32.3 % (38.2-49.6); HEMOGLOBIN 10.4 g/dL (14.0-18.0); LYMPHOCYTES # (AUTO) 0.9 (1.0-3.2); LYMPHOCYTES % 20.7 % (18.0-39.1); MEAN CORPUSCULAR HEMOGLOBIN 30.2 pg (28-32); MEAN CORPUSCULAR HGB CONC 32.2 g/dL (31-35); MEAN CORPUSCULAR VOLUME 93.9 fL (81-99); MONOCYTES # (AUTO) 0.3 (0.2-0.8); MONOCYTES % 7.4 % (4.4-11.3); NEUTROPHILS # (AUTO) 2.9 (2.1-6.9); NEUTROPHILS % 67.8 % (38.7-80.0); PLATELET COUNT 148 x10e3/uL (140-360); RED BLOOD COUNT 3.44 x10e6/uL (4.3-5.7)
[~2019-02-14] MED LIST changes: +ALLOPURINOL300 MG PO; +CIPRO500 MG PO; +CITALOPRAM HBR20 MG PO; +FENTANYL CITRATE/PF 100MCG/2 ML INJ ONE; +FLAGYL250 MG PO; +LIDOCAINE HCL 2% LOCAL INJ 5 ML SDV VIAL INJ ONE; +MEN'S ONE DAIL1 EACH PO; +MIDAZOLAM HCL 2 MG/2 ML VIAL ONE; +PERICOLACE PO; +PROPOFOL IV EMULSION 10 MG/ML 50 ML VIAL ONE; +SYNTHROID100 MCG PO; +TAFINLAR PO; +VITAMIN D35000 UNIT PO; +VYTORIN 10-401 EACH PO
--- OUTSIDE RECORDS SUMMARY | 2019-02-14 08:46 | XMS REPORT | Continuity of Care Document ---
Author Author [employer] [facility] [employer] Address Unknown Phone Unavailable Care Team Providers Care Employee Relations Specialist Name Role Phone [facility] [employer] Unavailable Unavailable Problems Problem Status Onset Date Classification Date Reported Comments Source Fever Active Problem 10/06/2018 [facility] Hypoglycemia Active Problem 10/06/2018 [facility] Lower gastrointestinal hemorrhage Active Problem 10/06/2018 [facility] Pneumonia Active Problem 10/06/2018 [facility] Medications Medication Details Route Status Patient Instructions Ordering Provider Order Date Source Glimepiride 4 Mg Tablet, 4 Mg Oral Daily Active 05/17/2018 [facility] Levofloxacin (Levaquin) 500 Mg Tablet, 500 Mg Oral Daily Active 05/17/2018 [facility] Acetaminophen (Tylenol Extra Strength) 500 Mg Tablet, 500 Mg Oral As Needed as needed for Pain Active 02/02/2018 [facility] Aspirin (Aspir 81) 81 Mg Tablet.dr, 81 Mg Oral Daily Active 02/02/2018 [facility] Ezetimibe/Simvastatin (Vytorin 10-20 Mg Tablet) 1 Each Tablet, Oral Daily Active 02/02/2018 [facility] Hydrocodone Bit/Acetaminophen ([place] 7.5-325 Tablet) 1 Each Tablet, 1 Ea Oral Every 6 Hours as needed for Pain Active 02/02/2018 [facility] Acetaminophen 325 Mg Tablet Every 6 Hours as needed for Pain Active [facility] Aspirin (Aspir 81) 81 Mg Tablet. Daily Active [facility] Cholecalciferol (Vitamin D3) (Vitamin D3) 5,000 Unit Capsule Daily Active [facility] Ciprofloxacin Hcl (Cipro) 500 Mg Tablet Twice A Day Active [facility] Citalopram Hydrobromide (Citalopram Hbr) 20 Mg Tablet Daily Active [facility] Clopidogrel Bisulfate (Clopidogrel) 75 Mg Tablet Daily Active [facility] Docusate Sodium (Stool Softener) 100 Mg Tablet Use As Directed Active EVERY OTHER DAY [facility] Ezetimibe/Simvastatin (Vytorin 10-40 Mg Tablet) 1 Each Tablet Daily Active [facility] Fish Oil/Dha/Epa (Fish Oil 1,200 Mg Fish Oil) 1 Each Capsule Daily Active [facility] Furosemide 40 Mg Tablet As Needed as needed for Edema Active as needed for swollen feet [facility] Iron Use As Directed Active EVERY OTHER DAY [facility] Metformin Hcl 500 Mg Tablet Twice A Day Active [facility] Metoprolol Succinate 50 Mg Tab.er.24h Daily Active [facility] Metronidazole (Flagyl) 250 Mg Tablet Twice A Day Active [facility] Multivitamin With Minerals (Men's One Daily) 1 Each Tablet Daily Active [facility] Olmesartan Med/Amlodipine/Hctz (Tribenzor 40-5-25 Mg Tablet) 1 Each Tablet Daily Active [facility] Tafinlar 50 Mg Twice A Day Active [facility] Allergies, Adverse Reactions, Alerts Substance Category Reaction Severity Reaction type Status Date Reported Comments Source Iodine WHELPS Mild Allergy to Substance Active 02/02/2018 [facility] Immunizations No Data Provided for This Section Results Order Name Results Value Reference Range Date Interpretation Comments Source Capillary blood glucose measurement by glucometer (mass/volume) 158 70 - 120 10/05/2018 [facility] Blood leukocytes automated count (number/volume) 6.36 4.8 - 10.8 10/05/2018 [facility] Blood erythrocytes automated count (number/volume) 2.80 4.3 - 5.7 10/05/2018 [facility] Blood hemoglobin measurement (moles/volume) 8.2 14.0 - 18.0 10/05/2018 [facility] Automated blood hematocrit (volume fraction) 25.3 38.2 - 49.6 10/05/2018 [facility] Automated erythrocyte mean corpuscular volume 90.4 81 - 99 10/05/2018 [facility] Automated erythrocyte mean corpuscular hemoglobin (mass per erythrocyte) 29.3 28 - 32 10/05/2018 [facility] Automated erythrocyte mean corpuscular hemoglobin concentration measurement (mass/volume) 32.4 31 - 35 10/05/2018 [facility] RDW BldCo-Rto 16.7 11.7 - 14.4 10/05/2018 [facility] Automated blood platelet count (count/volume) 199 140 - 360 10/05/2018 [facility] Automated blood segmented neutrophil count as percentage of total leukocytes 75.9 38.7 - 80.0 10/05/2018 [facility] Automated blood lymphocyte count as percentage ot total leukocytes 11.5 18.0 - 39.1 10/05/2018 [facility] Automated blood monocyte count as percentage of total leukocytes 7.1 4.4 - 11.3 10/05/2018 [facility] Automated blood eosinophil count as percentage of total leukocytes 3.9 0.0 - 6.0 10/05/2018 [facility] Automated blood basophil count as percentage of total leukocytes 0.2 0.0 - 1.0 10/05/2018 [facility] IM GRANULOCYTES % 1.4 0.0 - 1.0 10/05/2018 [facility] Automated blood neutrophil count 4.8 2.1 - 6.9 10/05/2018 [facility] Blood lymphocytes count (number/volume) 0.7 1.0 - 3.2 10/05/2018 [facility] Blood monocytes automated count (number/volume) 0.5 0.2 - 0.8 10/05/2018 [facility] Automated blood eosinophil count 0.3 0.0 - 0.4 10/05/2018 [facility] Automated blood basophil count (count/volume) 0.0 0.0 - 0.1 10/05/2018 [facility] Absolute Immature Granulocyte (auto 0.09 0 - 0.1 10/05/2018 [facility] Differential Total Cells Counted 100 10/04/2018 [facility] Manual blood neutrophils/100 leukocytes 73 40 - 74 10/04/2018 [facility] Manual blood lymphocytes/100 leukocytes 20 19 - 48 10/04/2018 [facility] Manual blood monocytes/100 leukocytes 3 3.4 - 9.0 10/04/2018 [facility] Manual blood eosinophil count as percentage of total leukocytes 3 0 - 7 10/04/2018 [facility] Manual blood myelocytes/100 leukocytes 1 0 - 0 10/04/2018 [facility] Blood platelets count by estimate (number/volume) ADEQUATE 10/04/2018 [facility] Platelet morphology NORMAL 10/04/2018 [facility] Blood hypochromia detection by light microscopy MODERATE 10/04/2018 [facility] Blood anisocytosis detection by light microscopy SLIGHT 10/04/2018 [facility] RBC morphology NORMAL 10/04/2018 [facility] Serum or plasma sodium measurement (moles/volume) 143 136 - 145 10/04/2018 [facility] Serum or plasma potassium measurement (moles/volume) 4.0 3.5 - 5.1 10/04/2018 [facility] Serum or plasma chloride measurement (moles/volume) 113 98 - 107 10/04/2018 [facility] Serum or plasma carbon dioxide, total measurement (moles/volume) 23 22 - 29 10/04/2018 [facility] Serum or plasma anion gap 11.0 8 - 16 10/04/2018 [facility] Serum or plasma urea nitrogen measurement (mass/volume) 15 7 - 26 10/04/2018 [facility] Serum or plasma creatinine measurement (mass/volume) 0.88 0.72 - 1.25 10/04/2018 [facility] Serum or plasma urea nitrogen/creatinine mass ratio 17 6 - 25 10/04/2018 [facility] Estimated glomerular filtration rate (GFR) determination > 60 60 10/04/2018 [facility] Glucose measurement 110 74 - 118 10/04/2018 [facility] Serum or plasma calcium measurement (mass/volume) 8.8 8.4 - 10.2 10/04/2018 [facility] Serum or plasma total bilirubin measurement (mass/volume) 0.3 0.2 - 1.2 10/03/2018 [facility] Aspartate Amino Transf (AST/SGOT) 9 5 - 34 10/03/2018 [facility] Serum or plasma alanine aminotransferase measurement (enzymatic activity/volume) 7 0 - 55 10/03/2018 [facility] Serum or plasma protein measurement (mass/volume) 5.0 6.5 - 8.1 10/03/2018 [facility] Serum or plasma albumin measurement (mass/volume) 2.9 3.5 - 5.0 10/03/2018 [facility] Plasma globulin measurement (mass/volume) 2.1 2.3 - 3.5 10/03/2018 [facility] Serum or plasma albumin/globulin mass ratio 1.4 0.8 - 2.0 10/03/2018 [facility] Serum or plasma alkaline phosphatase measurement (enzymatic activity/volume) 35 40 - 150 10/03/2018 [facility] Automated reticulocyte count as percentage of total erythrocytes 1.5 0.8 - 2.2 10/02/2018 [facility] Serum or plasma iron measurement (mass/volume) 78 65 - 175 10/02/2018 [facility] Serum or plasma iron binding capacity measurement (mass/volume) 214 261 - 478 10/02/2018 [facility] Serum or plasma iron saturation measurement (mass fraction) 36 15 - 50 10/02/2018 [facility] Serum or plasma transferrin measurement (mass/volume) 153 174 - 364 10/02/2018 [facility] Serum or plasma ferritin measurement (mass/volume) 182.88 21.81 - 274.66 10/02/2018 [facility] Urine color determination YELLOW YELLOW 10/02/2018 [facility] Urine clarity CLEAR CLEAR 10/02/2018 [facility] Specific gravity of Urine by Test strip 1.015 1.010 - 1.025 10/02/2018 [facility] Urine pH measurement by automated test strip 5 5 - 7 10/02/2018 [facility] Urine leukocyte esterase detection by dipstick NEGATIVE NEGATIVE 10/02/2018 [facility] Urine nitrite detection NEGATIVE NEGATIVE 10/02/2018 [facility] Urine protein measurement by test strip (mass/volume) NEGATIVE NEGATIVE 10/02/2018 [facility] Urine glucose detection NEGATIVE NEGATIVE 10/02/2018 [facility] Urine ketones detection by automated test strip NEGATIVE NEGATIVE 10/02/2018 [facility] Urine urobilinogen measurement by test strip (mass/volume) 0.2 0.2 - 1 10/02/2018 [facility] Urine total bilirubin measurement (mass/volume) NEGATIVE NEGATIVE 10/02/2018 [facility] Urine erythrocytes detection NEGATIVE NEGATIVE 10/02/2018 [facility] Automated urine sediment leukocyte count by microscopy (number/high power field) 6-10 0 - 5 10/02/2018 [facility] Erythrocytes detection in urine sediment by light microscopy 0-5 0 - 5 10/02/2018 [facility] Bacteria detection in urine sediment by light microscopy FEW NONE 10/02/2018 [facility] Epithelial cells detection in urine sediment by light microscopy FEW NONE 10/02/2018 [facility] Mucus detection in urine sediment by light microscopy FEW RARE 10/02/2018 [facility] Stool gastrointestinal hemoglobin detection POSITIVE NEGATIVE 10/02/2018 [facility] Activated partial thromboplastin time (aPTT) in platelet poor plasma bycoagulation assay 27.4 23.8 - 35.5 10/01/2018 [facility] BNP Bld-mCnc 389.1 0 - 100 10/01/2018 [facility] Serum or plasma creatine kinase measurement (enzymatic activity/volume) 45 30 - 200 10/01/2018 [facility] Serum or plasma creatine kinase MB measurement (mass/volume) 1.60 0 - 5.0 10/01/2018 [facility] Troponin I measurement by highly sensitive enzyme immunoassay 0.013 0 - 0.300 10/01/2018 [facility] Serum or plasma lipase measurement (enzymatic activity/volume) 101 8 - 78 10/01/2018 [facility] Serum or plasma triglyceride measurement (mass/volume) 75 0 - 149 05/17/2018 [facility] Serum or plasma cholesterol measurement (mass/volume) 103 0 - 199 05/17/2018 [facility] Serum or plasma cholesterol in LDL measurement (mass/volume) 48 60 - 130 05/17/2018 [facility] Serum or plasma cholesterol in HDL measurement (mass/volume) 40 40 - 60 05/17/2018 [facility] Serum or plasma total cholesterol/cholesterol in HDL mass ratio 2.6 3.9 - 4.7 05/17/2018 [facility] Influenza virus A and B antigen identification by immunofluorescence NEGATIVE NEGATIVE 02/02/2018 [facility] Manual blood metamyelocytes/100 leukocytes 3 0 - 0 02/02/2018 [facility] Lactic Acid Level 8.2 4.5 - 19.8 02/02/2018 [facility] Blood culture NO GROWTH AFTER 5 DAYS, FINAL REPORT 02/02/2018 [facility] Pathology Reports No Data Provided for This Section Diagnostic Reports No Data Provided for This Section Consultation Notes No Data Provided for This Section Discharge Summaries No Data Provided for This Section History and Physicals No Data Provided for This Section Vital Signs No Data Provided for This Section Encounters Location Location Details Encounter Type Encounter Number Reason For Visit Attending Provider ADM Date DC Date Status Source Discharged Inpatient [id number] HODA YARBROUGH MD 02/02/2018 02/06/2018 [facility] Departed Emergency Room [id number] CARMENCITA VU MD 02/07/2018 02/07/2018 [facility] [id number] ZAIRA HICKMAN MD 05/18/2018 [facility] Discharged Inpatient [id number] TESSA RIVERO MD 10/01/2018 10/05/2018 [facility] Procedures Procedure Code Date Perfomer Comments Source Computed tomography of abdomen and pelvis with contrast [id number] 10/02/2018 [facility] [place] CORONARY ARTERY ANGIO S&I [id number] 05/18/2018 [facility] Assessment and Plan No Data Provided for This Section Plan of Care Plan of Care Date Source Discharge Date 10/05/18 8:29pm Disposition HOME, SELF-CARE Instructions/Education Provided GI Bleeding Prescriptions See Medication Section Additional Instructions/Education Follow up with PCP in 1-2 weeks. Activity as tolerated. 10/05/2018 [facility] Social History Social History Date Source Social History Problem Response Recorded Date/Time Onset Date Status Hx Psychiatric Problems No 01/15/2015 4:00pm Not Applicable Not Applicable Hx Substance Use Disorder No 05/17/2018 11:42am Not Applicable Not Applicable Hx Alcohol Use Y - 6 PACK OF BEER PER YEAR 05/17/2018 11:42am Not Applicable Not Applicable 10/05/2018 [facility] Family History No Data Provided for This Section Advance Directives Order Name Results Value Date Source Advance Directives Advance Directives Directive Response Recorded Date/Time Does the patient have an advance directive? Yes 10/02/18 11:30am If yes, is advance directive on file with [facility]? Yes 10/02/18 11:30am If not on file with [facility] will patient provide a copy? Yes 10/02/18 11:30am Do you have a Directive to Physician? Yes 10/01/18 10:40pm Do you have a Medical Power of Theatre Director? Yes 10/01/18 10:40pm Do you have an out of hospital Do Not Resuscitate Order? Yes 10/01/18 10:40pm Do you have any special needs we should be aware of? Yes 10/01/18 10:40pm Do you have a support person here with you today? Yes 10/01/18 10:40pm Did patient receive Notice of Privacy Practices? Yes 10/01/18 10:40pm Did patient receive patient rights and responsibilities? Yes 10/01/18 10:40pm 10/05/2018 [facility] Functional Status No Data Provided for This Section
[2019-02-14 11:50] VITALS: BP 137/64
--- NOTE | 2019-02-14 18:30 | Operative Report ---
DATE OF PROCEDURE: 02/14/2019 SURGEON: Alfredo Dooley MD PROCEDURE PERFORMED: Colonoscopy. PREOPERATIVE DIAGNOSIS: History of colon polyps. POSTOPERATIVE DIAGNOSIS: Two colonic polyps removed, 1 from the descending colon and 1 from the sigmoid colon and diverticulosis without diverticulitis. PREOPERATIVE MEDICATIONS: Consisted of MAC anesthesia. PROCEDURE IN DETAIL: Using an [employer] video colonoscope was inserted in the patient's rectum and advanced without difficulty to the level of the cecum. The colon was studied from that level back down to the rectum, in the descending colon was 4 mm size benign sessile polyp, which was removed with hot biopsy forceps. In the sigmoid colon we had a 3 mm benign sessile polyp, which was also removed with the hot biopsy forceps. Diverticula were scattered throughout the sigmoid and descending colon without evidence of diverticulitis. The colonoscope was withdrawn back into the patient's rectum and the procedure was ended. In conclusion, we have findings of 2 colon polyps and diverticulosis. Alfredo Dooley MD SAF/MODL /[id number]
== END | disposition home or self-care (01) ==
LOC: OR 08:43
PROVIDERS: ATTEND Internal Medicine Gastroenterology
DX: Z09 Encounter for follow-up examination after completed treatment for conditions other than malignant neoplasm (principal); K63.5 Polyp of colon; K57.30 Diverticulosis of large intestine without perforation or abscess without bleeding; K21.9 Gastro-esophageal reflux disease without esophagitis; E11.9 Type 2 diabetes mellitus without complications; E78.2 Mixed hyperlipidemia; I50.9 Heart failure, unspecified; I11.0 Hypertensive heart disease with heart failure; Z91.041 Radiographic dye allergy status; Z01.810 Encounter for preprocedural cardiovascular examination; Z01.812 Encounter for preprocedural laboratory examination; Z95.1 Presence of aortocoronary bypass graft; Z95.5 Presence of coronary angioplasty implant and graft; Z95.810 Presence of automatic (implantable) cardiac defibrillator; Z80.0 Family history of malignant neoplasm of digestive organs
CPT/HCPCS: 36415 ×2; 45384; 82948; 85025; 88305; 93005; J2001; J2250; J2704; J3010; 45378

== ENCOUNTER → 2019-11-05 | Day surgery (SDC) | payer MEDICARE, OTHER ==
[2019-10-31 10:41] LABS: BASOPHILS % 0.5 % (0.0-1.0); EOSINOPHILS # (AUTO) 0.1 (0.0-0.4); EOSINOPHILS % 3.3 % (0.0-6.0); HEMATOCRIT 36.2 % (38.2-49.6); HEMOGLOBIN 11.5 g/dL (14.0-18.0); LYMPHOCYTES # (AUTO) 0.9 (1.0-3.2); LYMPHOCYTES % 21.8 % (18.0-39.1); MEAN CORPUSCULAR HEMOGLOBIN 31.6 pg (28-32); MEAN CORPUSCULAR HGB CONC 31.8 g/dL (31-35); MEAN CORPUSCULAR VOLUME 99.5 fL (81-99); MONOCYTES # (AUTO) 0.3 (0.2-0.8); MONOCYTES % 8.4 % (4.4-11.3); NEUTROPHILS # (AUTO) 2.6 (2.1-6.9); NEUTROPHILS % 65.5 % (38.7-80.0); PLATELET COUNT 137 x10e3/uL (140-360); RED BLOOD COUNT 3.64 x10e6/uL (4.3-5.7)
[2019-10-31 11:02] LABS: ALBUMIN 4.4 g/dL (3.5-5.0); ALBUMIN/GLOBULIN RATIO 1.5 (0.8-2.0); ANION GAP 19.6 mmol/L (8-16); CALCIUM 8.4 mg/dL (8.4-10.2); CREATININE, SERUM 2.2 mg/dL (0.72-1.25); POTASSIUM 4.6 mmol/L (3.5-5.1)
[~2019-11-05] MED LIST changes: +ALPRAZOLAM 0.5 MG TAB ONE; +AMIODARONE HCL200 MG; +ASPIR 8181 MG; +ASPIRIN325 MG PO; +DIPHENHYDRAMINE HCL INJ 50 MG/ML VIAL ONE; +FAMOTIDINE 20 MG/2 ML VIAL IV ONE; +HEPARIN SOD/SOD CHLORIDE 2,000 ML ONE; +IOPAMIDOL 370 MG/ML 200 ML INFUS..BTL INJ ONE; +LIDOCAINE HCL 2% LOCAL 20 ML VIAL ONE; -LIDOCAINE HCL 2% LOCAL INJ 5 ML SDV VIAL INJ ONE; +METHYLPREDNISOLONE SOD SUCC 125 MG/2ML VIAL ONE; +MULTI-VITAMIN1 EACH; +NAPROXEN250 MG PO; +POTASSIUM CHLO10 ME1 PO; -PROPOFOL IV EMULSION 10 MG/ML 50 ML VIAL ONE; +SODIUM CHLORIDE 0.9% 1000ML 1,000 ML ONE; +SYNTHROID75 MCG PO; +VITAMIN D3 COM1 EACH; +VITAMIN D32400 UNIT/
[2019-11-05 09:16] VITALS: BP 128/67
--- NOTE | 2019-11-05 09:16 | NUR ---
0916 Received pt to room #09,bedside report received from Martha HALL. Alert oriented and appropriate, PERRLA, respirations even and unlabored to room air. Pulses x4 extremities equal and strong. Pedal pulses PT/DP Cap fill brisk < 3 sec. Rt GroinMynx No gross issues pain,pallor,pressure or dysthymia. Skin warm and dry integrity appears D/I. IV 20g to 20g left wrist, presents healthy w/o s/s of infiltration or complaint. Abdomen soft and supple. pt offered toileting, denies need to urinate or defecate. No personal affects with patient. Family at bedside. Pt and family verbalizes understanding. Currently w/o complaint of pain or need.ds/rn
[2019-11-05 09:30] VITALS: BP 137/67
[2019-11-05 10:00] VITALS: BP 143/77
[2019-11-05 10:30] VITALS: BP 138/77
[2019-11-05 11:00] VITALS: BP 143/77
--- NOTE | 2019-11-05 11:00 | NUR ---
1100 Pt meets DC criteria. Rt Groin assessed for s/s of complication and presence of hematoma. Skin warm, dry, no discolor, and pulses present. IV removed from left wrist. Distal tip appears intact. VS WNL. Pt denies pain, sob, or need at this time. Family at bedside. Review of discharge paperwork and follow up instructions. verbalized understanding. Pt to wheelchair and transported to front of hospital. Transferred to private vehicle under own strength w/o incident with DC paperwork in hand. - ds/rn
--- NOTE | 2019-11-05 11:49 | Operative Report ---
DATE OF PROCEDURE: 11/05/2019 SURGEON: Freddie Law MD INDICATIONS: Coronary artery disease, abnormal stress test, previous coronary artery bypass surgery. PROCEDURES PERFORMED: 1. Conscious sedation, 35 minutes. 2. Left heart catheterization, selective coronary angiography. 3. Selective cannulation of two venous and one arterial bypass conduits. 4. Deployment of right groin Mynx closure device. COMPLICATIONS: None. RECOMMENDATIONS: Medical therapy. DESCRIPTION OF PROCEDURE: Access was obtained in the right femoral artery. A 6-Yi sheath was placed. Left main to circumflex stent had 50% in-stent restenosis. Left anterior descending artery is occluded. Mid circumflex 50% stenosis. 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 Saphenous vein bypass to right coronary artery is occluded. Saphenous vein bypass to diagonal artery was widely patent. Left internal mammary artery bypass to left anterior descending artery is widely patent. Right groin repaired using Mynx closure device. The patient discharged home the same day. Freddie Law MD KSB/MODL /[id number]
== END | disposition home or self-care (01) ==
LOC: CATH LAB 06:48
PROVIDERS: ATTEND Internal Medicine Interventional Cardiology
DX: I25.708 Atherosclerosis of coronary artery bypass graft(s), unspecified, with other forms of angina pectoris (principal); I11.0 Hypertensive heart disease with heart failure; I50.22 Chronic systolic (congestive) heart failure; I73.9 Peripheral vascular disease, unspecified; R09.89 Other specified symptoms and signs involving the circulatory and respiratory systems; J45.909 Unspecified asthma, uncomplicated; R94.39 Abnormal result of other cardiovascular function study; Z01.812 Encounter for preprocedural laboratory examination; Z11.59 Encounter for screening for other viral diseases; Z79.82 Long term (current) use of aspirin; Z68.34 Body mass index [BMI] 34.0-34.9, adult; Z95.1 Presence of aortocoronary bypass graft; Z95.810 Presence of automatic (implantable) cardiac defibrillator
CPT/HCPCS: 36415; 80053; 85025; 87635; 93455; C1760; C1769; J1200; J2001; J2250; J2930; J3010; J7030; Q9967; 99152; 99153

== ENCOUNTER → 2019-11-18 | Outpatient (CLI) | payer MEDICARE, OTHER ==
[~2019-11-18] MED LIST changes: -ALPRAZOLAM 0.5 MG TAB ONE; -DIPHENHYDRAMINE HCL INJ 50 MG/ML VIAL ONE; -FAMOTIDINE 20 MG/2 ML VIAL IV ONE; -FENTANYL CITRATE/PF 100MCG/2 ML INJ ONE; -HEPARIN SOD/SOD CHLORIDE 2,000 ML ONE; -IOPAMIDOL 370 MG/ML 200 ML INFUS..BTL INJ ONE; -LIDOCAINE HCL 2% LOCAL 20 ML VIAL ONE; -METHYLPREDNISOLONE SOD SUCC 125 MG/2ML VIAL ONE; -MIDAZOLAM HCL 2 MG/2 ML VIAL ONE; -SODIUM CHLORIDE 0.9% 1000ML 1,000 ML ONE
--- NOTE | 2019-11-19 08:59 | Diagnostic Imaging Report ---
CT LUMBAR SPINE WO HISTORY: Low back pain COMPARISON: CT of the abdomen/pelvis 10/02/2018 TECHNIQUE: Axial CT images of the lumbar spine were obtained without contrast. Coronal and sagittal reconstructions obtained from the axial data. One or more of the following dose reduction techniques were used: Automated exposure control, adjustment of the mA and/or kV according to patient size, and/or utilization of iterative reconstruction technique. DISCUSSION: Mild bone demineralization limits evaluation. There are 5 nonrib-bearing lumbar vertebral bodies. Lumbar lordosis is preserved. There is no significant scoliosis. No definite acute fracture or compression deformity is seen. No gross spinal canal mass is seen. The paravertebral and paraspinal soft tissues are unremarkable. Overall unchanged multilevel spondylotic changes are advanced at L2-L3 and L5-S1. Mild to moderate bilateral sacroiliac degenerative changes are present as well. L1-L2: No gross canal or foraminal stenosis. L2-L3: There is mild retrolisthesis of L2 on L3. Mild bilateral foraminal stenoses due to disc bulge and facet arthrosis. No gross canal stenosis. L3-L4: There is mild retrolisthesis of L3 on L4. Mild to moderate bilateral foraminal stenoses due to disc bulge and facet arthrosis. No gross canal stenosis. L4-L5: Mild to moderate bilateral foraminal stenoses due to disc bulge and facet arthrosis. No gross canal stenosis. L5-S1: Overall unchanged grade 1-2 anterolisthesis of L5 on S1 due to chronic bilateral L5 pars defects. Severe bilateral foraminal stenoses due to uncovered disc bulge and facet slippage. No gross canal stenosis. Diffuse aortoiliac calcified atherosclerosis is present. Sigmoid colon diverticulosis is partially imaged. IMPRESSION: 1. No acute osseous abnormalities. 2. Overall unchanged multilevel spondylosis, advanced at L2-L3 and L5-S1. 3. Unchanged grade 1-2 anterolisthesis of L5 on S1 due to chronic bilateral L5 pars defects. 4. Multilevel degenerative foraminal stenoses - severe bilaterally at L5-S1. 5. No gross canal stenosis. Signed by: Dr. Sam Bhat M.D. on 11/19/2019 8:56 AM
== END ==
LOC: CT 15:24
PROVIDERS: ATTEND Pain Medicine Pain Medicine
DX: M54.5 Low back pain (principal)
CPT/HCPCS: 72131

== ENCOUNTER 2019-11-30 21:26 | Emergency (ER) | payer MEDICARE, OTHER ==
[~2019-11-30] VITALS: Ht 172.7 cm; Wt 87.1 kg
[2019-11-30] MEDS ORDERED: ACETAMINOPHEN 325 MG TAB PO ONE (21:45)
[2019-11-30] MEDS ORDERED: CEFTRIAXONE SOD 1 GM/NS 50 ML 50 ML IV ONE (21:45)
[2019-11-30 21:54] LABS: BASOPHILS % 0.2 % (0.0-1.0); EOSINOPHILS # (AUTO) 0.1 (0.0-0.4); EOSINOPHILS % 1.7 % (0.0-6.0); HEMATOCRIT 31.3 % (38.2-49.6); HEMOGLOBIN 9.9 g/dL (14.0-18.0); LYMPHOCYTES # (AUTO) 0.7 (1.0-3.2); LYMPHOCYTES % 11.1 % (18.0-39.1); MEAN CORPUSCULAR HEMOGLOBIN 31.8 pg (28-32); MEAN CORPUSCULAR HGB CONC 31.6 g/dL (31-35); MEAN CORPUSCULAR VOLUME 100.6 fL (81-99); MONOCYTES # (AUTO) 0.5 (0.2-0.8); NEUTROPHILS # (AUTO) 4.7 (2.1-6.9); NEUTROPHILS % 77.7 % (38.7-80.0); PLATELET COUNT 130 x10e3/uL (140-360); RED BLOOD COUNT 3.11 x10e6/uL (4.3-5.7); RED CELL DISTRIBUTION WIDTH 15.3 % (11.7-14.4)
[2019-11-30 22:08] LABS: ALBUMIN 3.8 g/dL (3.5-5.0); ALBUMIN/GLOBULIN RATIO 1.2 (0.8-2.0); CALCIUM 8.1 mg/dL (8.4-10.2); CREATININE, SERUM 1.62 mg/dL (0.72-1.25)
--- NOTE | 2019-11-30 22:12 | Emergency Department Note ---
History of Present Illnes History of Present Illness Chief Complaint: COVID PUI History of Present Illness This is a 78 year old male presents to ED with fever x3 hrs; oral temp 100.6 F at this time, pt medicated per protocol; pt reports has been exposed to COVID recently; resp are even and unlabored, O2 sat ra 99%.denies any other symptoms Historian: Patient Arrival Mode: Car Onset (how long ago): hour(s) (3) Location: none Quality: fever Radiation: Reports non-radiation Severity: mild Onset quality: sudden Duration (how long): hour(s) (3) Timing of current episode: constant Progression: unchanged Chronicity: new Context: Denies recent illness, Denies recent surgery Relieving factors: none Exacerbating factors: none Associated symptoms: Reports denies other symptoms Past Medical/Family History Physician Review I have reviewed the patient's past medical and family history. Any updates have been documented here. Past Medical History Recent Fever: Yes Clinical Suspicion of Infectio: Yes New/Unexplained Change in Ment: No Past Medical History: Hypertension, Diabetes, CAD, Cancer, Hyperlipedemia Other Medical History: THYROID CANCER gout Past Surgical History: CABG Other Surgery: THYROIDECTOMY RIGHT KNEE, SKIN CANCER REMOVAL cardiac stents Social History Smoking Cessation: Former smoker Counseling Performed: No Alcohol Use: Occasional Any Illegal Drug Use: No Physically hurt or threatened: No Other Last Tetanus: UNKNOWN Any Pre-Existing Lines (PICC,: No Review of Systems Review of Systems Constitutional: Reports as per HPI EENTM: Reports no symptoms Cardiovascular: Reports no symptoms Respiratory: Reports no symptoms Gastrointestinal: Reports no symptoms Genitourinary: Reports no symptoms Musculoskeletal: Reports no symptoms Integumentary: Reports no symptoms Neurological: Reports no symptoms Psychological: Reports no symptoms Endocrine: Reports no symptoms Hematological/Lymphatic: Reports no symptoms Physical Exam Related Data Allergies: Coded Allergies: iodine (Verified Allergy, Mild, WHELPS, 02/02/18) Triage Vital Signs Vital Signs Date Time Temp Pulse Resp B/P (MAP) Pulse Ox O2 Delivery O2 Flow Rate FiO2 11/30/19 21:32 100.6 60 17 115/60 99 Room Air Vital signs reviewed: Yes Physical Exam CONSTITUTIONAL Constitutional: Present well-developed, Present well-nourished HENT HENT: Present normocephalic, Present atraumatic, Present oropharynx clear/moist, Present nose normal HENT L/R: Present left ext ear normal, Present right ext ear normal EYES Eyes: Reports PERRL, Reports conjunctivae normal NECK Neck: Present ROM normal PULMONARY Pulmonary: Present effort normal, Present breath sounds normal CARDIOVASCULAR Cardiovascular: Present regular rhythm, Present heart sounds normal, Present capillary refill normal, Present bradycardia (59) GASTROINTESTINAL Abdominal: Present soft, Present nontender, Present bowel sounds normal GENITOURINARY Genitourinary: Present exam deferred SKIN Skin: Present warm, Present dry MUSCULOSKELETAL Musculoskeletal: Present ROM normal NEUROLOGICAL Neurological: Present alert, Present oriented x 3, Present no gross motor or sensory deficits PSYCHOLOGICAL Psychological: Present mood/affect normal, Present judgement normal Results Laboratory Result Diagram: 11/30/19 6216 Laboratory Laboratory Tests Test 11/30/19 21:40 White Blood Count 6.02 x10e3/uL (4.8-10.8) Red Blood Count 3.11 x10e6/uL (4.3-5.7) Hemoglobin 9.9 g/dL (14.0-18.0) Hematocrit 31.3 % (38.2-49.6) Mean Corpuscular Volume 100.6 fL (81-99) Mean Corpuscular Hemoglobin 31.8 pg (28-32) Mean Corpuscular Hemoglobin Concent 31.6 g/dL (31-35) Red Cell Distribution Width 15.3 % (11.7-14.4) Platelet Count 130 x10e3/uL (140-360) Neutrophils (%) (Auto) 77.7 % (38.7-80.0) Lymphocytes (%) (Auto) 11.1 % (18.0-39.1) Monocytes (%) (Auto) 9.0 % (4.4-11.3) Eosinophils (%) (Auto) 1.7 % (0.0-6.0) Basophils (%) (Auto) 0.2 % (0.0-1.0) Neutrophils # (Auto) 4.7 (2.1-6.9) Lymphocytes # (Auto) 0.7 (1.0-3.2) Monocytes # (Auto) 0.5 (0.2-0.8) Eosinophils # (Auto) 0.1 (0.0-0.4) Basophils # (Auto) 0.0 (0.0-0.1) Absolute Immature Granulocyte (auto 0.02 x10e3/uL (0-0.1) Differential Total Cells Counted 100 Neutrophils % (Manual) 75 % (40-74) Lymphocytes % (Manual) 13 % (19-48) Monocytes % (Manual) 10 % (3.4-9.0) Eosinophils % (Manual) 2 % (0-7) Platelet Estimate Slightly decreased Platelet Morphology Comment Normal Red Cell Morphology Comment Normal Urine Color Yellow (YELLOW) Urine Clarity Clear (CLEAR) Urine pH 5.5 (5 - 7) Urine Specific [place] 1.015 (1.010-1.025) Urine Protein 1+ (NEGATIVE) Urine Glucose (UA) Negative (NEGATIVE) Urine Ketones Negative (NEGATIVE) Urine Blood Negative (NEGATIVE) Urine Nitrite Negative (NEGATIVE) Urine Bilirubin Negative (NEGATIVE) Urine Urobilinogen 0.2 mg/dL (0.2 - 1) Urine Leukocyte Esterase Negative (NEGATIVE) Urine RBC None /HPF (0-5) Urine WBC 0-5 /HPF (0-5) Urine Epithelial Cells Few /LPF (NONE) Urine Bacteria Few /HPF (NONE) Sodium Level 139 mmol/L (136-145) Potassium Level 4.0 mmol/L (3.5-5.1) Chloride Level 106 mmol/L (98-107) Carbon Dioxide Level 23 mmol/L (22-29) Anion Gap 14.0 mmol/L (8-16) Blood Urea Nitrogen 36 mg/dL (7-26) Creatinine 1.62 mg/dL (0.72-1.25) Estimat Glomerular Filtration Rate 42 ML/MIN (60-) BUN/Creatinine Ratio 22 (6-25) Glucose Level 114 mg/dL (74-118) Calcium Level 8.1 mg/dL (8.4-10.2) Total Bilirubin 0.6 mg/dL (0.2-1.2) Aspartate Amino Transf (AST/SGOT) 25 IU/L (5-34) Alanine Aminotransferase (ALT/SGPT) 25 IU/L (0-55) Alkaline Phosphatase 47 IU/L (40-150) Total Protein 7.0 g/dL (6.5-8.1) Albumin 3.8 g/dL (3.5-5.0) Globulin 3.2 g/dL (2.3-3.5) Albumin/Globulin Ratio 1.2 (0.8-2.0) Laboratory Tests Test 11/30/19 21:40 White Blood Count 6.02 x10e3/uL (4.8-10.8) Red Blood Count 3.11 x10e6/uL (4.3-5.7) Hemoglobin 9.9 g/dL (14.0-18.0) Hematocrit 31.3 % (38.2-49.6) Mean Corpuscular Volume 100.6 fL (81-99) Mean Corpuscular Hemoglobin 31.8 pg (28-32) Mean Corpuscular Hemoglobin Concent 31.6 g/dL (31-35) Red Cell Distribution Width 15.3 % (11.7-14.4) Platelet Count 130 x10e3/uL (140-360) Neutrophils (%) (Auto) 77.7 % (38.7-80.0) Lymphocytes (%) (Auto) 11.1 % (18.0-39.1) Monocytes (%) (Auto) 9.0 % (4.4-11.3) Eosinophils (%) (Auto) 1.7 % (0.0-6.0) Basophils (%) (Auto) 0.2 % (0.0-1.0) Neutrophils # (Auto) 4.7 (2.1-6.9) Lymphocytes # (Auto) 0.7 (1.0-3.2) Monocytes # (Auto) 0.5 (0.2-0.8) Eosinophils # (Auto) 0.1 (0.0-0.4) Basophils # (Auto) 0.0 (0.0-0.1) Absolute Immature Granulocyte (auto 0.02 x10e3/uL (0-0.1) Lab results reviewed: Yes Imaging Imaging results reviewed: Yes Impressions Procedure: [id number] DX/CHEST SINGLE (PORTABLE) Exam Date: 11/30/19 Exam Time: 2210 REPORT STATUS: Signed EXAMINATION: CHEST SINGLE (PORTABLE) INDICATION: Fever COMPARISON: Chest x-ray 10/02/2018 FINDINGS: TUBES and LINES: Left chest wall cardiac device with leads in the right atrium and right ventricle and coronary sinus. LUNGS/PLEURA: Low lung volumes. Obscured left hemidiaphragm. Left lower lung/retrocardiac haziness. No pneumothorax. HEART AND MEDIASTINUM: Cardiac size is moderately enlarged. Surgical clips along the mediastinum. BONES AND SOFT TISSUES: Sternotomy wires. Partially visualized lower cervical fixation hardware. No acute osseous lesion. Soft tissues are unremarkable. UPPER ABDOMEN: No free air under the diaphragm. IMPRESSION: Moderate cardiomegaly and pulmonary vascular congestion. Low lung volumes. Left retrocardiac opacity can be due to pneumonia, atelectasis, and/or pleural effusion. Signed by: Go Salmon DO on 11/30/2019 10:36 PM Dictated By: GO SALMON DO 35 Transcribed By: PAIGE on 11/30/192235 COPY TO: CARMENCITA VU MD~ Assessment & Plan Medical Decision Making MDM pt with fever cbc, cmp, ua, cxr, blood cultures, covid 19, urine culture ordered to eval for pneumonia, covid 19, uti, electrolyte abnormality tylenol 650 mg po ordered rocephin 1 gram iv ordered PT WITH RETROCARDIAC INFILTRATE ON CXR, POSSIBLE PNEUMONIA DISCHARGED WITH HOLLY CASTANO, WILL CALL PT WITH COVID 19 RESULTS Reassessment Reassessment time: 22:51 Reassessment PT DOING WELL PT OXYGEN SAT 97% ON ROOM AIR, RR 17 Assessment & Plan Final Impression: (1) Fever (2) Pneumonia Depart Disposition: HOME, SELF-CARE Last Vital Signs Date Time Temp Pulse Resp B/P (MAP) Pulse Ox O2 Delivery O2 Flow Rate FiO2 11/30/19 21:46 59 17 121/50 100 11/30/19 21:32 100.6 Room Air Home Meds Reported Medications Mv-Mn/Iron/Folic Acid/Herb 190 (Vitamin D3 Complete Caplet) 1 Each Tablet 10/31/19 Cholecalciferol (Vitamin D3) (VITAMIN D3) 2,400 Unit/1 Ml Liquid 10/31/19 Multivitamin (MULTI-VITAMIN DAILY) 1 Each Tablet 10/31/19 Aspirin (ASPIRIN) 325 Mg Tablet, 325 MG PO DAILY, #30 TAB 10/31/19 Aspirin (ASPIR 81) 81 Mg Tablet. 10/31/19 Amiodarone Hcl (AMIODARONE HCL) 200 Mg Tablet, BID 10/31/19 Potassium Chloride (POTASSIUM CHLORIDE) 10 Meq Tab.er.prt, 10 MEQ PO BID, TAB 10/31/19 Naproxen (NAPROXEN) 250 Mg Tablet, 500 MG PO BID, TAB 10/31/19 Levothyroxine Sodium (SYNTHROID) 75 Mcg Tab, 150 MCG PO, #30 TAB 10/31/19 Colchicine (COLCRYS) 0.6 Mg Tablet, 0.6 MG PO DAILY, #30 TAB 10/31/19 Allopurinol (ALLOPURINOL) 300 Mg Tablet, 300 MG PO DAILY, #30 TAB 02/11/19 Atorvastatin Calcium (ATORVASTATIN CALCIUM) 20 Mg Tablet, 40 MG PO HS, #30 TAB 02/11/19 [Pericolace] No Conflict Check, 50 MG PO DAILY 02/11/19 [Iron ] No Conflict Check, 65 MG PO UD EVERY OTHER DAY 05/17/18 Acetaminophen (ACETAMINOPHEN) 325 Mg Tablet, 500 MG PO PRN PRN for PAIN for 5 Days, TAB 02/02/18 Furosemide (FUROSEMIDE) 40 Mg Tablet, 40 MG PO DAILY PRN for edema, #30 TAB as needed for swollen feet 02/02/18 Olmesartan Med/Amlodipine/Hctz (TRIBENZOR 40-5-25 MG TABLET) 1 Each Tablet, 0.5 TAB PO DAILY 01/15/15 Metoprolol Succinate (METOPROLOL SUCCINATE) 50 Mg Tab.er.24h, 50 MG PO BID, MG 01/13/15 Medications in the ED Ceftriaxone Sodium 50 ml @ 100 mls/hr ONCE ONCE IV Last administered on 11/30/19at 21:57; Admin Dose 100 MLS/HR; Start 11/30/19 at 21:45; Stop 11/30/19 a t 22:14 Acetaminophen 650 mg ONCE ONCE PO Last administered on 11/30/19at 21:57; Admin Dose 650 MG; Start 11/30/19 at 21:45; Stop 11/30/19 at 21:47; Status DC CARMENCITA VU MD Nov 30, 2019 22:12
[2019-11-30 22:13] LABS: CLARITY,URINE CLEAR (CLEAR); COLOR,URINE YELLOW (YELLOW); LEUKOCYTE ESTERASE ,URINE NEGATIVE (NEGATIVE)
[2019-11-30 22:14] LABS: BILIRUBIN,URINE NEGATIVE (NEGATIVE); KETONES,URINE NEGATIVE (NEGATIVE); NITRITE,URINE NEGATIVE (NEGATIVE); PROTEIN,URINE DIPSTICK 1+ (NEGATIVE); URINE UROBILINOGEN 0.2 mg/dL (0.2 - 1)
[2019-11-30 22:15] LABS: BACTERIA,URINE FEW /HPF; EPITHELIAL CELLS,URINE FEW /LPF; WBC,URINE (MAN) 0-5 /HPF (0-5)
[2019-11-30 22:28] LABS: EOSINOPHILS % (MANUAL) 2 % (0-7); LYMPHOCYTES % (MANUAL) 13 % (19-48); MONOCYTES % (MANUAL) 10 % (3.4-9.0); NEUTROPHILS % (MANUAL) 75 % (40-74); PLATELET ESTIMATE SLIGHTLY DECREASED
[2019-11-30 22:29] LABS: PLATELET MORPHOLOGY COMMENT NORMAL; RBC MORPHOLOGY COMMENT NORMAL
--- NOTE | 2019-11-30 22:39 | Diagnostic Imaging Report ---
EXAMINATION: CHEST SINGLE (PORTABLE) INDICATION: Fever COMPARISON: Chest x-ray 10/02/2018 FINDINGS: TUBES and LINES: Left chest wall cardiac device with leads in the right atrium and right ventricle and coronary sinus. LUNGS/PLEURA: Low lung volumes. Obscured left hemidiaphragm. Left lower lung/retrocardiac haziness. No pneumothorax. HEART AND MEDIASTINUM: Cardiac size is moderately enlarged. Surgical clips along the mediastinum. BONES AND SOFT TISSUES: Sternotomy wires. Partially visualized lower cervical fixation hardware. No acute osseous lesion. Soft tissues are unremarkable. UPPER ABDOMEN: No free air under the diaphragm. IMPRESSION: Moderate cardiomegaly and pulmonary vascular congestion. Low lung volumes. Left retrocardiac opacity can be due to pneumonia, atelectasis, and/or pleural effusion. Signed by: Go Salmon DO on 11/30/2019 10:36 PM
[2019-11-30 23:00] VITALS: BP 110/44
== END 2019-11-30 23:20 | disposition home or self-care (01) ==
LOC: ER 22:00
DX: R50.9 Fever, unspecified (principal); J18.9 Pneumonia, unspecified organism; Z11.59 Encounter for screening for other viral diseases; I10 Essential (primary) hypertension; E11.9 Type 2 diabetes mellitus without complications; I25.10 Atherosclerotic heart disease of native coronary artery without angina pectoris; E78.5 Hyperlipidemia, unspecified; Z85.850 Personal history of malignant neoplasm of thyroid; Z95.1 Presence of aortocoronary bypass graft
CPT/HCPCS: 36415; 71045; 80053; 81001; 85025; 87040; 87086; 87635; 99284; J0696; U0002

== ENCOUNTER → 2021-01-29 | Outpatient (CLI) | payer MEDICARE | LOC: CT 13:31 | PROVIDERS: ATTEND Internal Medicine | DX: R04.2 Hemoptysis (principal) | CPT/HCPCS: 71250 ==

== ENCOUNTER 2021-12-17 11:00 | Outpatient (RCR) | payer MEDICARE | END 2021-12-19 | LOC: PT 11:00 | PROVIDERS: ATTEND Physician Assistant | DX: M75.102 Unspecified rotator cuff tear or rupture of left shoulder, not specified as traumatic (principal) ==

== ENCOUNTER 2021-12-21 07:40 | Outpatient (RCR) | payer MEDICARE | END 2022-01-19 | LOC: PT 07:40 | PROVIDERS: ATTEND Physician Assistant | DX: M75.102 Unspecified rotator cuff tear or rupture of left shoulder, not specified as traumatic (principal) ==

== ENCOUNTER 2021-12-21 15:58 | Emergency (ER) | payer MEDICARE ==
[~2021-12-21] VITALS: Ht 172.7 cm; Wt 87.1 kg
== END 2021-12-21 19:05 | disposition home or self-care (01) ==
LOC: ER 17:24
DX: M25.562 Pain in left knee (principal); M25.552 Pain in left hip; M79.652 Pain in left thigh; G89.3 Neoplasm related pain (acute) (chronic); I10 Essential (primary) hypertension; E11.9 Type 2 diabetes mellitus without complications; I25.10 Atherosclerotic heart disease of native coronary artery without angina pectoris; E78.5 Hyperlipidemia, unspecified; M10.9 Gout, unspecified; Z95.1 Presence of aortocoronary bypass graft
CPT/HCPCS: 99282

== ENCOUNTER 2022-04-16 22:03 | Observation (INO) | payer MEDICARE ==
[~2022-04-16] VITALS: Ht 167.6 cm; Wt 83.5 kg
[~2022-04-16 22:03] MED LIST changes: +CYMBALTA30 MG PO; +ENTRESTO 24 MG1 EACH PO; +FENTANYL1 EACH TOP; +HYDROMORPHONE HC2 MG PO; +PANTOPRAZOLE SO40 MG PO; +RANEXA500 MG PO; +XARELTO10 MG PO
[2022-04-16 22:55] LABS: BASOPHILS % 0.5 % (0.0-1.0); EOSINOPHILS # (AUTO) 0.1 (0.0-0.4); EOSINOPHILS % 2.6 % (0.0-6.0); HEMATOCRIT 29.5 % (38.2-49.6); LYMPHOCYTES % 22.5 % (18.0-39.1); MEAN CORPUSCULAR HEMOGLOBIN 30.2 pg (28-32); MEAN CORPUSCULAR HGB CONC 30.5 g/dL (31-35); MONOCYTES # (AUTO) 0.4 (0.2-0.8); MONOCYTES % 9.1 % (4.4-11.3); NEUTROPHILS # (AUTO) 2.8 (2.1-6.9); NEUTROPHILS % 64.8 % (38.7-80.0); PLATELET COUNT 311 x10e3/uL (140-360); RED BLOOD COUNT 2.98 x10e6/uL (4.3-5.7); RED CELL DISTRIBUTION WIDTH 14.5 % (11.7-14.4)
[2022-04-16 23:13] LABS: ALBUMIN/GLOBULIN RATIO 1.2 (0.8-2.0); ANION GAP 22.8 mmol/L (8-16); CALCIUM 8.4 mg/dL (8.4-10.2); CREATININE, SERUM 1.93 mg/dL (0.72-1.25); POTASSIUM 3.8 mmol/L (3.5-5.1)
[2022-04-16] MEDS ORDERED: SODIUM CHLORIDE 0.9% 1000ML 1,000 ML IV ONE (23:30)
[2022-04-17] MEDS ORDERED: SODIUM CHLORIDE 0.9% 1000ML 1,000 ML IV ONE
[2022-04-17] MEDS ORDERED: MAGNESIUM SULFATE 2GM/50ML 50 ML IV ONE
[2022-04-17 03:00] VITALS: BP 121/65
[2022-04-17 04:00] VITALS: BP 121/65
[2022-04-17 08:00] VITALS: BP 121/65
[2022-04-17 08:22] LABS: BASOPHILS % 0.3 % (0.0-1.0); EOSINOPHILS # (AUTO) 0.1 (0.0-0.4); HEMATOCRIT 25.3 % (38.2-49.6); LYMPHOCYTES # (AUTO) 0.7 (1.0-3.2); LYMPHOCYTES % 22.4 % (18.0-39.1); MEAN CORPUSCULAR HEMOGLOBIN 30.7 pg (28-32); MEAN CORPUSCULAR HGB CONC 30.8 g/dL (31-35); MEAN CORPUSCULAR VOLUME 99.6 fL (81-99); MONOCYTES # (AUTO) 0.3 (0.2-0.8); MONOCYTES % 10.2 % (4.4-11.3); NEUTROPHILS # (AUTO) 1.9 (2.1-6.9); NEUTROPHILS % 63.8 % (38.7-80.0); PLATELET COUNT 222 x10e3/uL (140-360); RED BLOOD COUNT 2.54 x10e6/uL (4.3-5.7); RED CELL DISTRIBUTION WIDTH 14.5 % (11.7-14.4)
[2022-04-17 08:43] LABS: HEMOGLOBIN 7.8 g/dL (14.0-18.0)
[2022-04-17 08:46] VITALS: BP 113/61
[2022-04-17 08:46] LABS: ALBUMIN 3.4 g/dL (3.5-5.0); ALBUMIN/GLOBULIN RATIO 1.3 (0.8-2.0); ANION GAP 17.5 mmol/L (8-16); CALCIUM 7.8 mg/dL (8.4-10.2); CREATININE, SERUM 1.75 mg/dL (0.72-1.25); MAGNESIUM 1.4 MG/DL (1.3-2.1); POTASSIUM 3.5 mmol/L (3.5-5.1)
[2022-04-17] MEDS ORDERED: MULTIVITAMINS/MINERALS TAB PO SCH ×2 (08:49→09:00)
[2022-04-17] MEDS ORDERED: ASPIRIN 81 MG CHEW TAB PO SCH (09:00)
[2022-04-17] MEDS ORDERED: FENTANYL 25 MCG/HR PATCH TOP PRN (09:00)
[2022-04-17] MEDS ORDERED: PANTOPRAZOLE SOD 40 MG TABEC PO SCH (09:00)
[2022-04-17] MEDS ORDERED: COLCHICINE 0.6 MG TAB PO PRN (09:00)
[2022-04-17] MEDS ORDERED: RANOLAZINE 500 MG TABSR PO SCH (09:00)
[2022-04-17] MEDS ORDERED: ACETAMINOPHEN 325 MG TAB PO PRN (09:00)
[2022-04-17] MEDS ORDERED: HYDROMORPHONE HCL 2 MG TAB PO PRN (09:00)
[2022-04-17] MEDS ORDERED: LEVOTHYROXINE SODIUM 100 MCG TAB PO SCH (09:00)
[2022-04-17] MEDS ORDERED: IRON 65 MG PO SCH (09:00)
[2022-04-17] MEDS ORDERED: NON-FORMULARY MEDICATION (Sacubitril/Valsartan (Entresto 24 mg-26 mg Tablet) 1 TAB) PO SCH (09:00)
[2022-04-17] MEDS ORDERED: PERICOLACE PO SCH (09:00)
[2022-04-17] MEDS ORDERED: ALLOPURINOL 300 MG TAB PO SCH (09:00)
[2022-04-17] MEDS ORDERED: METOPROLOL SUCCINATE 50 MG TAB XL PO SCH (09:00)
[2022-04-17] MEDS ORDERED: LEVOTHYROXINE SODIUM 75 MCG TAB PO SCH (09:00)
[2022-04-17] MEDS ORDERED: VALSARTAN/SACUBITRIL 24MG/26MG 1 EA TAB PO SCH (10:00)
[2022-04-17 12:25] VITALS: BP 103/66
[2022-04-17] MEDS ORDERED: RIVAROXABAN 10 MG TABLET PO SCH (17:00)
[2022-04-17] MEDS ORDERED: RIVAROXABAN 15 MG TABLET PO SCH (17:00)
[2022-04-17] MEDS ORDERED: SENNA-S TABLET PO SCH (21:00)
[2022-04-17] MEDS ORDERED: ATORVASTATIN 20 MG TAB PO SCH (21:00)
[2022-04-17] MEDS ORDERED: ATORVASTATIN 40 MG TAB PO SCH (21:00)
[2022-04-18] MEDS ORDERED: FERROUS SULFATE 325 MG TAB PO SCH (09:00)
== END 2022-04-17 13:38 | disposition home or self-care (01) ==
LOC: ER 22:10 → ERHOLD 23:54 → MED/SURG2 04-17 01:58
PROVIDERS: ADMIT Internal Medicine; ATTEND Internal Medicine
DX: C73 Malignant neoplasm of thyroid gland (principal); D63.0 Anemia in neoplastic disease; C78.02 Secondary malignant neoplasm of left lung; C78.01 Secondary malignant neoplasm of right lung; C79.51 Secondary malignant neoplasm of bone; C79.72 Secondary malignant neoplasm of left adrenal gland; C79.71 Secondary malignant neoplasm of right adrenal gland; E83.42 Hypomagnesemia; E86.0 Dehydration; I95.1 Orthostatic hypotension; Z95.1 Presence of aortocoronary bypass graft; I10 Essential (primary) hypertension; E11.9 Type 2 diabetes mellitus without complications; E78.5 Hyperlipidemia, unspecified
CPT/HCPCS: 36415 ×2; 80053 ×2; 83735 ×2; 85025 ×2; 86850; 86900; 93005; 99284; G0378 ×2; J3475; J7030; S0164; U0002

== ENCOUNTER 2022-06-05 22:11 | Inpatient (IN) | payer MEDICARE ==
[~2022-06-05] VITALS: Ht 167.6 cm; Wt 86.2 kg
[2022-06-05] MEDS ORDERED: ASPIRIN 81 MG CHEW TAB PO ONE (22:45)
[2022-06-05 22:55] LABS: EOSINOPHILS # (AUTO) 0.1 (0.0-0.4); EOSINOPHILS % 3.8 % (0.0-6.0); HEMOGLOBIN 7.6 g/dL (14.0-18.0); LYMPHOCYTES # (AUTO) 0.3 (1.0-3.2); LYMPHOCYTES % 7.9 % (18.0-39.1); MEAN CORPUSCULAR HEMOGLOBIN 30.3 pg (28-32); MEAN CORPUSCULAR HGB CONC 31.7 g/dL (31-35); MEAN CORPUSCULAR VOLUME 95.6 fL (81-99); MONOCYTES # (AUTO) 0.5 (0.2-0.8); MONOCYTES % 12.2 % (4.4-11.3); NEUTROPHILS # (AUTO) 2.8 (2.1-6.9); NEUTROPHILS % 75.6 % (38.7-80.0); PLATELET COUNT 218 x10e3/uL (140-360); RED BLOOD COUNT 2.51 x10e6/uL (4.3-5.7); RED CELL DISTRIBUTION WIDTH 14.9 % (11.7-14.4)
[2022-06-05 23:06] LABS: INR 2.85; PARTIAL THROMBOPLASTIN TIME 43.9 seconds (23.8-35.5)
[2022-06-05 23:11] LABS: ALBUMIN 3.2 g/dL (3.5-5.0); ALBUMIN/GLOBULIN RATIO 1.1 (0.8-2.0); CALCIUM 8.2 mg/dL (8.4-10.2); CREATININE, SERUM 2.37 mg/dL (0.72-1.25)
[2022-06-05 23:26] LABS: CREATINE KINASE MB 3.1 ng/mL (0-5.0)
[2022-06-06] VITALS (9 sets, daily range): BP systolic 106–127; BP diastolic 53–77
[2022-06-06] MEDS ORDERED: FUROSEMIDE INJ 10 MG/ML 2 ML VIAL IV ONE ×2 (00:15→06:00)
[2022-06-06] MEDS ORDERED: SODIUM CHLORIDE 0.9% 250ML 250 ML IV ONE ×2 (00:15→11:45)
[2022-06-06] MEDS ORDERED: SODIUM CHLORIDE FLUSH 10 ML SYR INJ PRN (00:15)
[2022-06-06] MEDS ORDERED: ONDANSETRON HCL INJ 2MG/ML 2ML 2 MG/ML VIAL IV PRN (00:15)
[2022-06-06] MEDS ORDERED: DEXTROSE 50% SYRINGE 50 ML IV PRN (00:15)
[2022-06-06] MEDS ORDERED: TORSEMIDE20 MG PO (03:44)
[2022-06-06] MEDS ORDERED: FENTANYL 25 MCG/HR PATCH TOP PRN (03:45)
[2022-06-06] MEDS ORDERED: METHADONE HCL5 MG PO (03:47)
[2022-06-06] MEDS: INSULIN REGULAR, HUMAN 100 UNIT/1 ML SQ SCH ×4 (07:30→21:00)
[2022-06-06] MEDS ORDERED: PANTOPRAZOLE SOD 40 MG TABEC PO SCH (07:30)
[2022-06-06] MEDS ORDERED: ASPIRIN 81 MG CHEW TAB PO SCH (09:00)
[2022-06-06] MEDS: ALLOPURINOL 300 MG TAB PO SCH (09:00)
[2022-06-06] MEDS: RANOLAZINE 500 MG TABSR PO SCH ×2 (09:05→16:45)
[2022-06-06] MEDS: LEVOTHYROXINE SODIUM 100 MCG TAB PO SCH (09:05)
[2022-06-06 09:38] LABS: EOSINOPHILS # (AUTO) 0.1 (0.0-0.4); EOSINOPHILS % 3.4 % (0.0-6.0); HEMATOCRIT 24.3 % (38.2-49.6); HEMOGLOBIN 7.7 g/dL (14.0-18.0); LYMPHOCYTES # (AUTO) 0.2 (1.0-3.2); LYMPHOCYTES % 6.8 % (18.0-39.1); MEAN CORPUSCULAR HEMOGLOBIN 29.8 pg (28-32); MEAN CORPUSCULAR HGB CONC 31.7 g/dL (31-35); MEAN CORPUSCULAR VOLUME 94.2 fL (81-99); MONOCYTES # (AUTO) 0.4 (0.2-0.8); MONOCYTES % 14.3 % (4.4-11.3); NEUTROPHILS # (AUTO) 2.2 (2.1-6.9); NEUTROPHILS % 75.2 % (38.7-80.0); PLATELET COUNT 167 x10e3/uL (140-360); RED BLOOD COUNT 2.58 x10e6/uL (4.3-5.7); RED CELL DISTRIBUTION WIDTH 14.5 % (11.7-14.4)
[2022-06-06 10:04] LABS: ALBUMIN 2.9 g/dL (3.5-5.0); ALBUMIN/GLOBULIN RATIO 1.2 (0.8-2.0); ANION GAP 17.9 mmol/L (8-16); CALCIUM 7.8 mg/dL (8.4-10.2); CREATININE, SERUM 2.55 mg/dL (0.72-1.25); POTASSIUM 4.9 mmol/L (3.5-5.1)
[2022-06-06] MEDS: ALPRAZOLAM 0.25 MG TAB PO PRN ×3 (13:22→23:41)
[2022-06-06] MEDS ORDERED: PROPOFOL IV EMULSION 10 MG/ML 20 ML VIAL ONE (13:37)
[2022-06-06] MEDS ORDERED: LIDOCAINE HCL 2% LOCAL INJ 5 ML SDV VIAL INJ ONE (13:37)
[2022-06-06] MEDS ORDERED: EPHEDRINE SULFATE INJ 50 MG/ML VIAL ONE (13:37)
[2022-06-06 20:18] LABS: HEMATOCRIT 26.6 % (38.2-49.6); HEMOGLOBIN 8.6 g/dL (14.0-18.0)
[2022-06-06] MEDS ORDERED: ATORVASTATIN 20 MG TAB PO SCH (21:00)
[2022-06-06] MEDS: ATORVASTATIN 40 MG TAB PO SCH (21:51)
[2022-06-07] VITALS (9 sets, daily range): BP systolic 126–147; BP diastolic 52–72
[2022-06-07 02:52] LABS: EOSINOPHILS # (AUTO) 0.1 (0.0-0.4); EOSINOPHILS % 4.8 % (0.0-6.0); HEMATOCRIT 26.2 % (38.2-49.6); HEMOGLOBIN 8.6 g/dL (14.0-18.0); LYMPHOCYTES # (AUTO) 0.3 (1.0-3.2); LYMPHOCYTES % 9.6 % (18.0-39.1); MEAN CORPUSCULAR HEMOGLOBIN 29.8 pg (28-32); MEAN CORPUSCULAR HGB CONC 32.8 g/dL (31-35); MEAN CORPUSCULAR VOLUME 90.7 fL (81-99); MONOCYTES # (AUTO) 0.4 (0.2-0.8); NEUTROPHILS # (AUTO) 2.1 (2.1-6.9); NEUTROPHILS % 72.3 % (38.7-80.0); PLATELET COUNT 159 x10e3/uL (140-360); RED BLOOD COUNT 2.89 x10e6/uL (4.3-5.7); RED CELL DISTRIBUTION WIDTH 14.6 % (11.7-14.4)
[2022-06-07] MEDS ORDERED: LORAZEPAM INJ 2 MG/ML VIAL IV ONE (05:00)
[2022-06-07] MEDS ORDERED: LORAZEPAM INJ 2 MG/ML VIAL IV PRN (05:00)
[2022-06-07] MEDS: PANTOPRAZOLE SOD 40 MG TABEC PO SCH ×3 (05:27→17:06)
[2022-06-07] MEDS: INSULIN REGULAR, HUMAN 100 UNIT/1 ML SQ SCH ×4 (07:30→21:00)
[2022-06-07 08:10] LABS: EOSINOPHILS # (AUTO) 0.1 (0.0-0.4); EOSINOPHILS % 4.1 % (0.0-6.0); HEMOGLOBIN 8.4 g/dL (14.0-18.0); LYMPHOCYTES # (AUTO) 0.2 (1.0-3.2); LYMPHOCYTES % 8.2 % (18.0-39.1); MEAN CORPUSCULAR HEMOGLOBIN 29.3 pg (28-32); MEAN CORPUSCULAR HGB CONC 32.3 g/dL (31-35); MEAN CORPUSCULAR VOLUME 90.6 fL (81-99); MONOCYTES # (AUTO) 0.4 (0.2-0.8); MONOCYTES % 13.6 % (4.4-11.3); NEUTROPHILS # (AUTO) 2.2 (2.1-6.9); NEUTROPHILS % 73.8 % (38.7-80.0); PLATELET COUNT 159 x10e3/uL (140-360); RED BLOOD COUNT 2.87 x10e6/uL (4.3-5.7); RED CELL DISTRIBUTION WIDTH 14.6 % (11.7-14.4)
[2022-06-07] MEDS ORDERED: SODIUM CHLORIDE 0.9% 250ML 250 ML ONE (08:13)
[2022-06-07 08:31] LABS: ALBUMIN 2.9 g/dL (3.5-5.0); ALBUMIN/GLOBULIN RATIO 1.2 (0.8-2.0); ANION GAP 18.4 mmol/L (8-16); CALCIUM 7.9 mg/dL (8.4-10.2); CREATININE, SERUM 2.8 mg/dL (0.72-1.25); MAGNESIUM 2.5 MG/DL (1.3-2.1); POTASSIUM 5.4 mmol/L (3.5-5.1)
[2022-06-07] MEDS: RANOLAZINE 500 MG TABSR PO SCH ×2 (09:00→17:07)
[2022-06-07] MEDS: ALLOPURINOL 300 MG TAB PO SCH (09:00)
[2022-06-07] MEDS ORDERED: ONDANSETRON HCL 4 MG ORAL DISINTEGRATING TAB PO PRN (10:30)
[2022-06-07] MEDS: LEVOTHYROXINE SODIUM 100 MCG TAB PO SCH (10:55)
[2022-06-07] MEDS: SODIUM CHLORIDE 0.9% 1000ML 1,000 ML IV SCH (13:20)
[2022-06-07] MEDS ORDERED: ALLOPURINOL 300 MG TAB PO PRN (17:30)
[2022-06-07] MEDS: ATORVASTATIN 40 MG TAB PO SCH (21:19)
[2022-06-08] VITALS (9 sets, daily range): BP systolic 118–145; BP diastolic 59–83
[2022-06-08] MEDS: SODIUM CHLORIDE 0.9% 1000ML 1,000 ML IV SCH ×2 (02:19→15:55)
[2022-06-08 04:52] LABS: BASOPHILS % 0.4 % (0.0-1.0); EOSINOPHILS # (AUTO) 0.1 (0.0-0.4); EOSINOPHILS % 5.2 % (0.0-6.0); HEMATOCRIT 26.5 % (38.2-49.6); HEMOGLOBIN 8.6 g/dL (14.0-18.0); LYMPHOCYTES # (AUTO) 0.1 (1.0-3.2); LYMPHOCYTES % 6.1 % (18.0-39.1); MEAN CORPUSCULAR HEMOGLOBIN 29.5 pg (28-32); MEAN CORPUSCULAR HGB CONC 32.5 g/dL (31-35); MEAN CORPUSCULAR VOLUME 90.8 fL (81-99); MONOCYTES # (AUTO) 0.3 (0.2-0.8); MONOCYTES % 14.3 % (4.4-11.3); NEUTROPHILS # (AUTO) 1.7 (2.1-6.9); NEUTROPHILS % 73.6 % (38.7-80.0); PLATELET COUNT 146 x10e3/uL (140-360); RED BLOOD COUNT 2.92 x10e6/uL (4.3-5.7); RED CELL DISTRIBUTION WIDTH 14.8 % (11.7-14.4)
[2022-06-08 05:12] LABS: ALBUMIN 2.6 g/dL (3.5-5.0); ANION GAP 18.2 mmol/L (8-16); CALCIUM 8.1 mg/dL (8.4-10.2); CREATININE, SERUM 2.51 mg/dL (0.72-1.25); MAGNESIUM 2.4 MG/DL (1.3-2.1); POTASSIUM 5.2 mmol/L (3.5-5.1)
[2022-06-08] MEDS: INSULIN REGULAR, HUMAN 100 UNIT/1 ML SQ SCH ×4 (07:30→21:11)
[2022-06-08] MEDS ORDERED: PHYTONADIONE 10 MG/ML AMP SQ ONE ×2 (07:30→20:00)
[2022-06-08] MEDS ORDERED: BISACODYL 5 MG TAB EC PO ONE ×2 (07:30→20:00)
[2022-06-08] MEDS ORDERED: PEG (High)/E-LYTE SOLN 4,000 ML BTL PO ONE ×2 (07:30→20:00)
[2022-06-08] MEDS: PANTOPRAZOLE SOD 40 MG TABEC PO SCH ×2 (09:20→17:01)
[2022-06-08] MEDS: LEVOTHYROXINE SODIUM 100 MCG TAB PO SCH (09:21)
[2022-06-08] MEDS: RANOLAZINE 500 MG TABSR PO SCH ×2 (09:21→17:01)
[2022-06-08] MEDS: ATORVASTATIN 40 MG TAB PO SCH (21:02)
[2022-06-09] VITALS (9 sets, daily range): BP systolic 101–133; BP diastolic 51–71
[2022-06-09 05:51] LABS: BASOPHILS % 0.8 % (0.0-1.0); EOSINOPHILS # (AUTO) 0.1 (0.0-0.4); EOSINOPHILS % 1.9 % (0.0-6.0); HEMATOCRIT 27.8 % (38.2-49.6); HEMOGLOBIN 9.4 g/dL (14.0-18.0); LYMPHOCYTES # (AUTO) 0.1 (1.0-3.2); LYMPHOCYTES % 4.2 % (18.0-39.1); MEAN CORPUSCULAR HEMOGLOBIN 29.7 pg (28-32); MEAN CORPUSCULAR HGB CONC 33.8 g/dL (31-35); MONOCYTES # (AUTO) 0.5 (0.2-0.8); MONOCYTES % 18.8 % (4.4-11.3); NEUTROPHILS # (AUTO) 1.9 (2.1-6.9); NEUTROPHILS % 73.9 % (38.7-80.0); PLATELET COUNT 187 x10e3/uL (140-360); RED BLOOD COUNT 3.16 x10e6/uL (4.3-5.7); RED CELL DISTRIBUTION WIDTH 15.6 % (11.7-14.4)
[2022-06-09] MEDS: LEVOTHYROXINE SODIUM 100 MCG TAB PO SCH (06:00)
[2022-06-09] MEDS: SODIUM CHLORIDE 0.9% 1000ML 1,000 ML IV SCH ×3 (06:07→19:34)
[2022-06-09 06:14] LABS: INR 1.36
[2022-06-09 06:19] LABS: ALBUMIN 2.7 g/dL (3.5-5.0); ANION GAP 18.2 mmol/L (8-16); CALCIUM 8.1 mg/dL (8.4-10.2); CREATININE, SERUM 2.05 mg/dL (0.72-1.25); POTASSIUM 5.2 mmol/L (3.5-5.1)
[2022-06-09] MEDS: INSULIN REGULAR, HUMAN 100 UNIT/1 ML SQ SCH ×4 (07:30→21:00)
[2022-06-09 07:41] LABS: BAND NEUTROPHILS % (MANUAL) 1 %; EOSINOPHILS % (MANUAL) 4 % (0-7); LYMPHOCYTES % (MANUAL) 4 % (19-48); MONOCYTES % (MANUAL) 17 % (3.4-9.0); NEUTROPHILS % (MANUAL) 72 % (40-74); PLATELET ESTIMATE ADEQUATE; PLATELET MORPHOLOGY COMMENT FEW LARGE
[2022-06-09 07:42] LABS: RBC MORPHOLOGY COMMENT NORMAL
[2022-06-09] MEDS: PANTOPRAZOLE SOD 40 MG TABEC PO SCH ×2 (09:00→17:23)
[2022-06-09] MEDS: RANOLAZINE 500 MG TABSR PO SCH ×2 (09:00→17:00)
[2022-06-09] MEDS: ATORVASTATIN 40 MG TAB PO SCH (20:59)
[2022-06-10] VITALS (7 sets, daily range): BP systolic 113–131; BP diastolic 61–76
[2022-06-10 04:45] LABS: EOSINOPHILS # (AUTO) 0.1 (0.0-0.4); EOSINOPHILS % 1.8 % (0.0-6.0); HEMOGLOBIN 7.8 g/dL (14.0-18.0); LYMPHOCYTES # (AUTO) 0.2 (1.0-3.2); LYMPHOCYTES % 6.8 % (18.0-39.1); MEAN CORPUSCULAR HEMOGLOBIN 29.2 pg (28-32); MEAN CORPUSCULAR HGB CONC 31.2 g/dL (31-35); MEAN CORPUSCULAR VOLUME 93.6 fL (81-99); MONOCYTES # (AUTO) 0.4 (0.2-0.8); MONOCYTES % 12.5 % (4.4-11.3); NEUTROPHILS # (AUTO) 2.2 (2.1-6.9); NEUTROPHILS % 78.2 % (38.7-80.0); PLATELET COUNT 143 x10e3/uL (140-360); RED BLOOD COUNT 2.67 x10e6/uL (4.3-5.7); RED CELL DISTRIBUTION WIDTH 15.5 % (11.7-14.4)
[2022-06-10 05:06] LABS: ALBUMIN 2.2 g/dL (3.5-5.0); ALBUMIN/GLOBULIN RATIO 0.9 (0.8-2.0); ANION GAP 15.6 mmol/L (8-16); CALCIUM 7.6 mg/dL (8.4-10.2); CREATININE, SERUM 1.66 mg/dL (0.72-1.25); POTASSIUM 4.6 mmol/L (3.5-5.1)
[2022-06-10 05:51] LABS: EOSINOPHILS % (MANUAL) 3 % (0-7); LYMPHOCYTES % (MANUAL) 5 % (19-48); MONOCYTES % (MANUAL) 15 % (3.4-9.0); NEUTROPHILS % (MANUAL) 77 % (40-74); PLATELET ESTIMATE ADEQUATE; PLATELET MORPHOLOGY COMMENT NORMAL; RBC MORPHOLOGY COMMENT NORMAL
[2022-06-10] MEDS: LEVOTHYROXINE SODIUM 100 MCG TAB PO SCH (05:56)
[2022-06-10] MEDS: INSULIN REGULAR, HUMAN 100 UNIT/1 ML SQ SCH ×3 (07:30→16:30)
[2022-06-10] MEDS: PANTOPRAZOLE SOD 40 MG TABEC PO SCH ×2 (08:25→16:16)
[2022-06-10] MEDS: RANOLAZINE 500 MG TABSR PO SCH ×2 (08:26→16:16)
== END 2022-06-10 17:40 | disposition home or self-care (01) | DRG 812 ==
LOC: ER 22:58 → ERHOLD 06-06 00:19 → MED/SURG 06-06 01:25 → OBSVTOIN 06-06 18:20
PROVIDERS: ADMIT Internal Medicine; ATTEND Internal Medicine
PROC: 30233N1 Transfusion of Nonautologous Red Blood Cells into Peripheral Vein, Percutaneous Approach (ICD-10-PCS; 2022-06-06)
PROC: 0DJD8ZZ Inspection of Lower Intestinal Tract, Via Natural or Artificial Opening Endoscopic (ICD-10-PCS; principal; 2022-06-09 08:51)
DX: D64.9 Anemia, unspecified (principal); K92.2 Gastrointestinal hemorrhage, unspecified; C78.00 Secondary malignant neoplasm of unspecified lung; J96.11 Chronic respiratory failure with hypoxia; E87.1 Hypo-osmolality and hyponatremia; I13.0 Hypertensive heart and chronic kidney disease with heart failure and stage 1 through stage 4 chronic kidney disease, or unspecified chronic kidney disease; R04.2 Hemoptysis; G93.40 Encephalopathy, unspecified; I50.22 Chronic systolic (congestive) heart failure; E78.5 Hyperlipidemia, unspecified; I25.10 Atherosclerotic heart disease of native coronary artery without angina pectoris; E86.0 Dehydration; C73 Malignant neoplasm of thyroid gland; H91.90 Unspecified hearing loss, unspecified ear; E89.0 Postprocedural hypothyroidism; M10.9 Gout, unspecified; D72.819 Decreased white blood cell count, unspecified; E87.5 Hyperkalemia; F41.9 Anxiety disorder, unspecified; E11.22 Type 2 diabetes mellitus with diabetic chronic kidney disease; N18.30 Chronic kidney disease, stage 3 unspecified; E66.9 Obesity, unspecified; D69.6 Thrombocytopenia, unspecified; K64.8 Other hemorrhoids; Z66 Do not resuscitate; Z82.49 Family history of ischemic heart disease and other diseases of the circulatory system; Z91.041 Radiographic dye allergy status; Z95.1 Presence of aortocoronary bypass graft; Z95.810 Presence of automatic (implantable) cardiac defibrillator; Z96.651 Presence of right artificial knee joint; Z95.5 Presence of coronary angioplasty implant and graft; Z85.828 Personal history of other malignant neoplasm of skin; Z79.891 Long term (current) use of opiate analgesic; Z79.82 Long term (current) use of aspirin; Z79.899 Other long term (current) drug therapy; Z79.01 Long term (current) use of anticoagulants; Z68.30 Body mass index [BMI] 30.0-30.9, adult; Z79.4 Long term (current) use of insulin
CPT/HCPCS: 36415; 45378; 71045; 80053; 82550; 82553; 82948; 83735; 83880; 84484; 85014; 85018; 85025; 85610; 85730; 86850; 86900; 86920; 87086; 93005; 94799; 99252; 99284; J0696; J1817; J1940; J2001; J2060; J3430; J7030; J7050; P9016